=== PATIENT | male | born 1995 ===

== ENCOUNTER 2020-05-11 15:35 | Outpatient (REF) | payer MEDICAID, SELFPAY ==
--- NOTE | 2020-05-11 15:36 | MR_ITS ---
EXAMINATION: MR SHOULDER WITHOUT CONTRAST, RIGHT CLINICAL INFORMATION: Right shoulder pain. COMPARISON: Right shoulder radiographs dated 02/28/2020 TECHNIQUE: MRI of the shoulder without contrast was performed on a high-field scanner. FINDINGS: ROTATOR CUFF: Intact. No muscle atrophy or fatty infiltration. BICEPS: Normal. CORACOACROMIAL ARCH: The undersurface of the acromion is flat with no subacromial spur. The acromioclavicular joint is normal. LABRUM/CAPSULE: There is a 0.5 cm paralabral cyst adjacent to the posteroinferior labrum, likely indicating an adjacent occult labral tear. No displaced labral tear. GLENOHUMERAL JOINT/MARROW: Intact articular cartilage. No evidence of acute osseous injury. MR/MR shoulder RT wo con IMPRESSION: 1. Paralabral cyst adjacent to the posteroinferior labrum, likely indicating an adjacent occult labral tear. 2. Intact rotator cuff.
== END 2020-05-11 15:36 | disposition home or self-care (01) ==
LOC: HO.MRI 15:35
PROVIDERS: PCP Family Medicine; Visit Provider Family Medicine
DX: M25.511 Pain in right shoulder (principal)
CPT/HCPCS: 73221

== ENCOUNTER 2020-09-15 13:43 | Emergency (ER) | payer MEDICAID, SELFPAY ==
[2020-09-15 14:07] VITALS: BP 118/69; BP 150/80; PULSE 110; PULSE 115; RESP 20; TEMP 36.9; O2SAT 100; BMI 18.8
--- NOTE | 2020-09-15 15:28 | ED_ITS ---
HPI - Alcohol General Chief Complaint: ETOH/Substance Use Stated Complaint: OVERDOSE / COAX4 Time Seen by Provider: 09/15/20 14:26 Source: patient and EMS Mode of arrival: EMS History of Present Illness HPI narrative: 25-year-old male with a past medical history of spondylosis of the cervical spine presenting to the ED BIBA after found unresponsive in bathroom by family, given 4 mg of intranasal Narcan with positive affect. Patient appears under the influence, sleeping comfortably in the ED. Admits to taking Xanax, uncooperative with history/exam. Also reports marijuana use. Denies EtOH/other drugs/SI/HI Related Data Allergies Allergy/AdvReac Type Severity Reaction Status Date / Time No Known Allergies Allergy Unverified 04/05/20 17:35 Review of Systems Review of Systems: History limited due to patient being under the influence/uncooperative with exam/history Yes all other systems are reviewed and are negative [facility] Past Medical History Attestation statement: The following information was validated with the patient. Social History Social History Advance Directives: No Advance Directives Information Provided: No Physical Exam Vital Signs: Vital Signs: Last Vital Signs Temp 98.4 F 09/15/20 14:07 Pulse 115 H 09/15/20 14:07 Resp 20 09/15/20 14:07 BP 118/69 09/15/20 14:07 Pulse Ox 100 09/15/20 14:07 Body Mass Index 18.8 Const: Other: under the influence General: alert (to voice and tactile stimuli), diaphoretic and lethargic Orientation/consciousness: patient oriented x3 and lethargic HENMT: Head: Yes normal to inspection and Yes atraumatic Ears: hearing grossly normal bilaterally General nose exam: Normal external nose present Face and sinus: Yes normal facial exam Eyes: General: appearance normal, both eyes and all related structures Pupils: Equal, round and reactive pupils present EOM: EOMs intact bilaterally Neck: Neck: Yes normal visual inspection and Yes no meningeal signs Resp: Effort & Inspection: normal respiratory effort Cardio: Rate: regular rate and tachycardic GI: Inspection: Yes normal to inspection Palpation (GI): Soft to palpation Skin: Rashes: no rashes Neuro: General: patient oriented x3, tone normal and no meningeal signs Cranial nerves: Yes Equal, round and reactive pupils present Gait exam (Neuro): Normal gait present Extrem: General: Yes normal to inspection Psych: Thought content: suicidality and no homicidality Course Course Course Narrative: -1557--on re-evaluation patient is sleeping comfortably, easily abusable. Admits to taking two 2mg's of Xanax. Given inge dax --1700-- ED care transferred to MINDY Muller pending clinical sobriety and d/c MDM - Alcohol MDM Narrative Medical decision making narrative: 25-year-old male with a past medical history of spondylosis of the cervical spine presenting to the ED BIBA after found unresponsive in bathroom by family, given 4 mg of intranasal Narcan with positive affect. On exam tachyacrdic, under the influence, sleeping but easily arousible. Atraumatic, [place]. Will observe and reassess for clinical sobriety Discharge Plan Discharge Clinical Impression: Overdose Qualifiers: Encounter type: initial encounter Injury intent: accidental or unintentional Qualified Code(s): T50.901A - Poisoning by unspecified drugs, medicaments and biological substances, accidental (unintentional), initial encounter Instructions: Adult Overdose (ED) Additional Instructions: DO NOT TAKE DRUGS OR DRINK ALCOHOL IT CAN KILL YOU Referrals: [facility] [Primary Care Provider] - 2 days
--- NOTE | 2020-09-15 17:46 | MHC.RECOVSUP ---
? Reason for consult: Overdose o Current location: ED22H o Identified substance use concern:Heroin - Overdose - Support ? Intervention: o Community resources provided o Harm reduction discussion ? Plan: o Patient to follow up with [facility] after discharge ? Additional information: Patient stated that He has been on MAT for 3Years and that he was going through some stress and had a relapse. He stated that he don't need a detox and that he got a recovery couch from [facility].
[2020-09-15 19:08] VITALS: BP 112/68; PULSE 99; RESP 14; TEMP 37.4; O2SAT 96
== END 2020-09-15 19:24 | disposition home or self-care (01) ==
PROVIDERS: Emergency Provider Emergency Medicine
DX: R40.4 Transient alteration of awareness (principal); T42.4X4A Poisoning by benzodiazepines, undetermined, initial encounter; Y92.012 Bathroom of single-family (private) house as the place of occurrence of the external cause; R00.0 Tachycardia, unspecified; F12.90 Cannabis use, unspecified, uncomplicated
CPT/HCPCS: 99283

== ENCOUNTER 2022-12-20 13:16 | Emergency (ER) | payer MEDICAID, SELFPAY ==
[2022-12-20 13:54] VITALS: BP 131/83; PULSE 93; RESP 18; TEMP 36.8; O2SAT 98; BMI 25.1
--- NOTE | 2022-12-20 13:54 | ED_ITS ---
HPI - General Adult General Chief complaint: General Medical Stated complaint: swollen throat x1 week, cant eat or drink Time Seen by Provider: 12/20/22 14:55 Source: patient Mode of arrival: ambulatory Limitations: no limitations History of Present Illness HPI narrative: 27 year old male with no significant past medical history presents today with sore throat, nonproductive cough, neck pain, and pain with swallowing x1 week. States he has been tolerating fluids and staying hydrated. Reports nausea and fever one week ago which has since resolved. Denies nausea, vomiting, diarrhea, constipation, rashes, headache, nasal congestion, chest pain, or shortness of breath. No known sick contacts. MD complaint: sore throat Onset (ago): week(s) (1) Location: mouth Radiation: non-radiation Severity: moderate Related Data Previous Rx's Medication Instructions Recorded amoxicillin 875 mg-potassium 1 tab PO BID #20 tabs 12/20/22 clavulanate 125 mg tablet ibuprofen 600 mg tablet 600 mg PO Q8H PRN fever or pain 12/20/22 #20 tabs Allergies Allergy/AdvReac Type Severity Reaction Status Date / Time No Known Allergies Allergy Verified 12/20/22 13:54 Review of Systems Review of Systems: Yes all other systems are reviewed and are negative [facility] Past Medical History Source: old records reviewed Social History Social History Advance Directives: No Physical Exam ED Vital Signs: Vital Signs - 24 hr 12/20/22 13:54 Temperature 98.2 F Pulse Rate 93 Respiratory Rate 18 Blood Pressure 131/83 Pulse Oximetry 98 Oxygen Delivery Method Room Air BMI result Body Mass Index 25.1 VSS. Afebrile. Appearance: Alert. Oriented X3. No acute distress. HEENT: erythema to posterior pharynx. tonsils beefy red, and edematous. No tonsilar exudates. uvula midline. tolerating secretions. CVS: Normal heart rate and rhythm. Pulses normal. Respiratory: No respiratory distress. Lungs CTA b/l Skin: Skin warm and dry. Normal skin color. Normal skin turgor. No rashes. Neuro: Oriented X 3. No motor deficit. No sensory deficit. Course Course Course Narrative: RME performed by Teresa Carcamo PA-C. Patient is a 27 year old assigned male at presenting to the emergency department with a sore throat. Swabs ordered. Patient placed back in the waiting room pending room availability and results. Medical Decision Making Medical Decision Making [facility] Narrative: 27 year old male with no significant past medical history presents today with sore throat, nonproductive cough, neck pain, and pain with swallowing x1 week. VSS. Afebrile. Physical exam significant for erythema to posterior pharynx. tonsils beefy red, and edematous. No tonsilar exudates. uvula midline. tolerating secretion. no respiratory distress. lungs CTA b/l. Serology positive for strep. Negative for COVID and influenza. Clinical presentation consistent with strep throat. Will send patient home with rx for amoxicillin. Advised the patient to complete entire course of abx and take ibuprofen as needed. Advised patient to rines throat with salt water 3x/day. Will provide patient with a note for work tomorrow. Can return after 24 hours of abx. Patient expressed understanding of workup and plan. Patient stable for discharge. Differential Diagnosis Differential Diagnoses: The differential diagnosis associated with the presentation includes strep throat, viral pharyngitis, COVID, influenza Lab Data [facility] Lab Attestation statement: I reviewed the patient's lab results. Labs: Lab Results 12/20/22 12/20/22 12/20/22 Range/Units 14:05 14:05 14:05 COVID-19 (NAE[facility]) Negative (Negative) COVID-19 Clin Com See Note Influenza Type A (EDU) Negative (Negative) Influenza Type B (EDU) Negative (Negative) Influenza A & B Note See Note S. pyogenes GrpA EDU Positive A (Negative) External Record Review External record reviewed: Prior outpatient labs Prescription Management I considered prescription management with: Pain Medication and Antibiotic Discharge Plan Discharge Clinical Impression: Strep throat Patient Disposition: Home, Self-Care Instructions: Strep Throat (DC) Additional Instructions: You tested positive for strep throat. Take the prescribed antibiotic as directed. Started right away. Do not miss any doses in complete the entire course. Take the prescribed anti-inflammatory pain medication every 6-8 hours as needed. Take it with food. Recommend warm salt water gargles 3 times per day. Recommend [id number] Chloraseptic spray and Cepacol lozenges as needed for sore throat. Make sure you're drinking plenty of fluids. Follow-up with your doctor as needed. If you develop new or worsening symptoms call 911 or come back to the ER for further evaluation. Prescriptions: New amoxicillin-pot clavulanate 875-125 mg tablet 1 tab PO BID Qty: 20 0RF ibuprofen 600 mg tablet 600 mg PO Q8H PRN (Reason: fever or pain) Qty: 20 0RF Stand Alone Forms: Work/School Release Interventions: ED Discharge Assessment Last Done: 12/20/22 15:14 Discharge Date/Time: 12/20/22 15:30
[2022-12-20 14:47] LABS: IDNOW Serial# 6674DD1D; Strep A Nucleic Acid Positive (Negative)
[2022-12-20 14:51] LABS: COVID-19 Test Negative (Negative); IDNOW Serial# 9DB6401D
[2022-12-20 14:55] LABS: IDNOW Serial# 55D5AD1C; Influenza A Negative (Negative); Influenza B2 Negative (Negative)
== END 2022-12-20 15:30 | disposition home or self-care (01) ==
PROVIDERS: Physician Assistant Medical; Emergency Provider Emergency Medicine
DX: J02.0 Streptococcal pharyngitis (principal); Z20.822 Contact with and (suspected) exposure to COVID-19; Z20.828 Contact with and (suspected) exposure to other viral communicable diseases
CPT/HCPCS: 87502; 87635; 87651; 99282; 99283

== ENCOUNTER 2023-08-11 10:52 | Outpatient (REF) | payer MEDICAID, SELFPAY ==
[2023-08-11 14:48] LABS: Syphilis Screen Nonreactive (Nonreactive)
[2023-08-11 14:57] LABS: Alanine Aminotransferase 52 U/L (0-40); Albumin Level 4.8 g/dL (3.5-5.0); Alkaline Phosphatase 76 U/L (39-117); Aspartate Amino Transferase 17 U/L (5-37); Bilirubin Direct 0.2 mg/dL (0.0-0.5); Bilirubin Total 0.7 mg/dL (0.0-1.0); Total Protein 7.9 g/dL (6.5-8.0)
[2023-08-12 09:14] LABS: HIV AB/AG Nonreactive (Nonreactive); HIV Num 1 0.06 S/CO (0.00-0.99); ~HepC Num1 0.08 S/CO (0.00-0.79); ~Hepatitis C Antibody Nonreactive (Nonreactive)
[2023-08-14 08:48] LABS: TS Negative Control Passed; TS Panel A 0; TS Panel B 0; TS Positive Control Passed; TSpotTB Negative (Negative)
== END 2023-08-11 10:53 | disposition home or self-care (01) ==
LOC: HO.HHCL 10:52
PROVIDERS: Visit Provider Emergency Medicine
DX: F11.20 Opioid dependence, uncomplicated (principal)
CPT/HCPCS: 36415; 80076; 86481; 86780; 86803; 87389

== ENCOUNTER 2024-08-17 14:10 | Emergency (ER) | payer MEDICAID, SELFPAY ==
--- NOTE | ~2024-08-17 | CT_ITS ---
CLINICAL HISTORY: n v d abd pain CT abdomen and pelvis with contrast Comparison: None Findings: Lung bases clear. No free fluid or free air within the abdomen or pelvis. Normal stomach, small bowel, appendix, and colon. Moderate colonic fecal retention. Normal gallbladder, bile ducts, liver, pancreas, spleen, and adrenal glands. Unremarkable kidneys, ureters, and urinary bladder. Prostate within normal limits. No aortic aneurysm. Bones intact. IMPRESSION: No acute findings. Moderate colonic fecal retention. Correlate for constipation. This document has been electronically signed by: Jd Haynes MD on 08/17/2024 22:19:50
[2024-08-17 15:03] VITALS: BP 138/99; PULSE 75; RESP 16; TEMP 36.9; O2SAT 99; BMI 24.3
--- NOTE | 2024-08-17 15:03 | ED_ITS ---
HPI - General Adult General Chief complaint: Abdominal Pain Stated complaint: Vomiting Time Seen by Provider: 08/17/24 20:15 Related Data Previous Rx's ?Medication ?Instructions ?Recorded amoxicillin 875 mg-potassium 1 tab PO BID #20 tabs 12/20/22 clavulanate 125 mg tablet ibuprofen 600 mg tablet 600 mg PO Q8H PRN fever or pain 12/20/22 #20 tabs ibuprofen 400 mg tablet 400 mg PO Q6H PRN pain #20 tabs 08/17/24 ondansetron 4 mg disintegrating 4 mg PO TID PRN nausea and 08/17/24 tablet vomiting 5 days #10 tabs Allergies Allergy/AdvReac Type Severity Reaction Status Date / Time No Known Allergies Allergy Verified 08/17/24 15:06 [facility] Social History Social History Advance Directives: No Advance Directives Information Provided: Yes Physical Exam ED Vital Signs: Vital Signs - 24 hr 08/17/24 15:03 08/17/24 20:25 08/17/24 21:58 Temperature 98.4 F 98.2 F 98.7 F Pulse Rate 75 72 74 Respiratory Rate 16 16 16 Blood Pressure 138/99 H 122/63 116/75 Pulse Oximetry 99 98 99 Oxygen Delivery Method Room Air Room Air Room Air BMI result Body Mass Index 24.3 Course Course Course Narrative: This is a Rapid Medical Examination (RME) performed by Jonathan Kaur PA-C in triage. Full HPI, ROS, assessment and treatment plan per primary provider in the Main ED. 29 yo male here for eval of nausea, vomiting, epigastric abdominal pain, headache, blurred vision, dizziness, weakness, and chest tightness x3 days. cannot tolerate food/ drink. son and brother in law were ill w/ similar symptoms last week. admits to consuming etoh last night. not a daily drinker. smokes marijuana 2-3x a week. Plan: labs, viral swabs, UA, ekg Medications Administered Discontinued Medications Generic Name Dose Route Start Last Admin Trade Name Freq PRN Reason Stop Dose Admin Diphenhydramine HCl 25 mg 08/17/24 20:48 08/17/24 21:17 Diphenhydramine Hcl 50 Mg/Ml Vial IVPUSH 08/17/24 20:49 25 mg ONCE ONE Administration Sodium Chloride 1,000 mls @ 999 mls/hr 08/17/24 21:00 08/17/24 21:17 Ns IV 08/17/24 22:00 999 mls/hr .Q1H1M AYE Administration Sodium Chloride 1,000 mls @ 999 mls/hr 08/17/24 21:00 08/17/24 21:17 Ns IV 08/17/24 22:00 999 mls/hr .Q1H1M AYE Administration Iohexol 85 ml 08/17/24 21:41 08/17/24 21:42 Iohexol 350 Mg/Ml 100 Ml Infus..Btl IV 08/17/24 21:42 85 ml ONCE ONE Administration Metoclopramide HCl 10 mg 08/17/24 20:48 08/17/24 21:17 Metoclopramide Hcl 10 Mg/2 Ml Vial IVPUSH 08/17/24 20:49 10 mg ONCE ONE Administration Ondansetron HCl 4 mg 08/17/24 18:12 08/17/24 18:14 Ondansetron Odt 4 Mg Tab.Rapdis TRANSLINGU 08/17/24 18:13 4 mg ONCE ONE Administration Medical Decision Making Lab Data 08/17/24 15:27 08/17/24 15:27 Labs: Lab Results 08/17/24 Range/Units 15:27 WBC 10.3 (4.8-10.8) X10*3/uL RBC 5.27 (4.60-5.80) X10*6/uL Hgb 15.3 (14.0-18.0) g/dl Hct 44.2 (42.0-52.0) % MCV 83.9 (80.0-98.0) fL MCH 29.0 (27.0-33.0) pg MCHC 34.6 (31.0-36.0) g/dl RDW 12.8 (11.0-16.0) % Plt Count 297 (160-400) X10*3/uL MPV 9.9 (9.4-12.4) fL Immature Gran % (Auto) 0.3 (0.0-0.4) % Neut % (Auto) 78.8 H (45-73) % Lymph % (Auto) 16.7 L (20-40) % Beauregard % (Auto) 2.9 (2-11) % Eos % (Auto) 0.9 (0-4) % Baso % (Auto) 0.4 (0-2) % Lymph # (Auto) 1.7 (1.2-4.9) X10*3/uL Bea[place]gard # (Auto) 0.3 (0.1-1.2) X10*3/uL Eos # (Auto) 0.1 (0.0-0.4) X10*3/uL Baso # (Auto) 0.0 (0.0-0.2) X10*3/uL Abs Immat Gran (auto) 0.03 (0.00-0.03) X10*3/uL Absolute Neuts (auto) 8.2 (2.0-8.3) x10*3/uL Absolute Nucleated RBC 0.000 (0.0-0.012) X10*3/uL Nucleated RBC % (auto) 0.0 (0.0-0.2) /100WBC Sodium 139 (135-145) mmol/L Potassium 4.4 (3.3-5.1) mmol/L Chloride 103 (96-108) mmol/L Carbon Dioxide 25 (22-29) mmol/L Anion Gap 15 (12-20) BUN 18 H (9-16) mg/dL Creatinine 0.80 (0.5-1.4) mg/dL Estim Creat Clear Calc 139.4 Estimated GFR > 60 Random Glucose 103 (60-115) mg/dL Calcium 9.6 (8.4-10.2) mg/dL Magnesium 2.1 (1.6-2.6) mg/dL Total Bilirubin 0.4 (0.0-1.0) mg/dL AST 34 (5-37) U/L ALT 36 (0-40) U/L Alkaline Phosphatase 62 (39-117) U/L Troponin I High Sens < 2.7 (<3.5-35.0) ng/L Total Protein 8.1 H (6.5-8.0) g/dL Albumin 4.7 (3.5-5.0) g/dL Lipase 18 (8-78) U/L Ethyl Alcohol 19 mg/dL Influenza Type A (PCR) NEGATIVE (Negative) Influenza Type B (PCR) NEGATIVE (Negative) RSV RNA Qual (PCR) NEGATIVE (Negative) SARS-CoV-2 RNA (RT-PCR) NEGATIVE (Negative) Discharge Plan Discharge Clinical Impression: Headache, migraine, Gastroenteritis Patient Disposition: Home, Self-Care Instructions: Migraine Headache (ED), Gastroenteritis (ED) Prescriptions: New ibuprofen 400 mg tablet 400 mg PO Q6H PRN (Reason: pain) Qty: 20 0RF ondansetron 4 mg tablet,disintegrating 4 mg PO TID PRN (Reason: nausea and vomiting) 5 Days Qty: 10 0RF No Action amoxicillin-pot clavulanate 875-125 mg tablet 1 tab PO BID Qty: 20 0RF ibuprofen 600 mg tablet 600 mg PO Q8H PRN (Reason: fever or pain) Qty: 20 0RF Referrals: [facility] [Primary Care Provider] - 08/19/24 Print Language: Latvian
--- NOTE | 2024-08-17 15:05 | ECG_ITS ---
Test Reason : CHEST TIGHTNESS Blood Pressure : */* mmHG Vent. Rate : 74 BPM Atrial Rate : 74 BPM P-R Int : 126 ms QRS Dur : 92 ms QT Int : 382 ms P-R-T Axes : 76 51 27 degrees QTcB Int : 424 ms Normal sinus rhythm with sinus arrhythmia Normal ECG No previous ECGs available Referred By: Mariah Kaur Electronically Signed By: SREEKANTH OLIVER
[2024-08-17 15:32] LABS: MANUAL DIFF FLAG NO
[2024-08-17 15:47] LABS: Basophils Percent Auto 0.4 % (0-2); Eosinophils Absolute Auto 0.1 X10*3/uL (0.0-0.4); Eosinophils Percent Auto 0.9 % (0-4); Hematocrit 44.2 % (42.0-52.0); Hemoglobin 15.3 g/dl (14.0-18.0); Imm Gran Abs Auto 0.03 X10*3/uL (0.00-0.03); Imm Gran Pct Auto 0.3 % (0.0-0.4); Lymphocytes Absolute Auto 1.7 X10*3/uL (1.2-4.9); Lymphocytes Percent Auto 16.7 % (20-40); Mean Corpuscular HGB Conc 34.6 g/dl (31.0-36.0); Mean Corpuscular Volume 83.9 fL (80.0-98.0); Mean Platelet Volume 9.9 fL (9.4-12.4); Monocytes Absolute Auto 0.3 X10*3/uL (0.1-1.2); Monocytes Percent Auto 2.9 % (2-11); Neutrophils Absolute Auto 8.2 x10*3/uL (2.0-8.3); Neutrophils Percent Auto 78.8 % (45-73); Platelet Count 297 X10*3/uL (160-400); Red Blood Count 5.27 X10*6/uL (4.60-5.80); Red Cell Distribution Width 12.8 % (11.0-16.0); White Blood Count 10.3 X10*3/uL (4.8-10.8)
[2024-08-17 15:51] LABS: Troponin-I High Sensitivity < 2.7 ng/L (<3.5-35.0)
[2024-08-17 16:01] LABS: Alanine Aminotransferase 36 U/L (0-40); Albumin Level 4.7 g/dL (3.5-5.0); Anion Gap 15 (12-20); Aspartate Amino Transferase 34 U/L (5-37); Bilirubin Total 0.4 mg/dL (0.0-1.0); Blood Urea Nitrogen 18 mg/dL (9-16); Calcium 9.6 mg/dL (8.4-10.2); Carbon Dioxide 25 mmol/L (22-29); Chloride 103 mmol/L (96-108); Creatinine Clr Calc Pharmacy 139.4; Estimated Glomerular Filt Rate > 60; Glucose Random 103 mg/dL (60-115); Lipase 18 U/L (8-78); Magnesium 2.1 mg/dL (1.6-2.6); Potassium 4.4 mmol/L (3.3-5.1); Sodium 139 mmol/L (135-145); Total Protein 8.1 g/dL (6.5-8.0)
[2024-08-17 16:06] LABS: Alkaline Phosphatase 62 U/L (39-117)
[2024-08-17 16:23] LABS: Influenza A PCR NEGATIVE (Negative); Influenza B PCR NEGATIVE (Negative); Resp Syncy Virus RNA Qual PCR NEGATIVE (Negative); SARS COV2 PCR INHOUSE NEGATIVE (Negative)
--- OUTSIDE RECORDS SUMMARY | 2024-08-17 17:23 | XMS_ITS | Clinical Summary ---
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 naloxone (Narcan) 4 mg/0.1 mL nasal spray Administer 0.1 mL into affected nostril(s). 04/26/20 20 Active nicotine polacrilex (Commit) 2 MG lozenge DISSOLVE 1 TO 2 LOZENGES BY MOUTH EVERY 1 TO 2 HOURS INSTEAD OF A CIGARETTE. LET IT DISSOLVE SLOWLY IN YOUR MOUTH DIRECTED 11/20/19 22 Active nicotine (Nicoderm, Step 2) 14 MG/24HR patch APPLY 1 PATCH TOPICALLY TO THE SKIN EVERY MORNING DIRECTED 11/20/19 22 Active Acetaminophen Extra Strength 500 MG tablet TAKE 1 TABLET BY MOUTH EVERY 6 TO 8 HOURS NEEDED FOR DO NOT EXCEED 8 TABLETS IN 24 HOURS 07/22/19 22 Active ibuprofen 800 MG tablet Take 1 tablet by mouth in the morning and 1 tablet at noon and 1 tablet in the evening. 02/21/20 17 Active ARIPiprazole (Abilify) 5 MG tablet Take 5 mg by mouth in the morning. 03/30/20 23 Active gabapentin (Neurontin) 300 MG capsule Take 300 mg by mouth 3 times daily. 03/30/20 23 Active venlafaxine XR (Effexor XR) 150 MG 24 hr capsule Take 300 mg by mouth in the morning. 04/17/20 23 Active ibuprofen 600 MG tablet TAKE 1 TABLET BY MOUTH EVERY 8 HOURS NEEDED FOR FEVER OR PAIN 12/21/19 23 Active buprenorphine- naloxone (Suboxone) 12-3 MG per sublingual filmIndication s:Uncomplicate d opioid use Place 1 Film under the tongue Once per day for 14 days. 14 Film 08/17/19 25 025 Active buprenorphine- naloxone (Suboxone) 12-3 MG per sublingual filmIndication s:Uncomplicate d opioid use Place 1 Film under the tongue Once per day for 14 days. 14 Film 07/15/20 24 025 Discontinued(Re order (will not trigger notification to Pharmacy)) buprenorphine- naloxone (Suboxone) 12-3 MG per sublingual filmIndication s:Uncomplicate d opioid use Place 1 Film under the tongue Once per day for 14 days. 14 Film 08/02/19 25 025 Discontinued(Re order (will not trigger notification to Pharmacy)) Active Problems Problem Noted Date Diagnosed Date Preventative health care 05/26/2023 Overview (05/26/2023): -next physical exam due after -eye care facilitated by -dental home is YODIT (generalized anxiety disorder) 10/28/2022 Assessment & Plan (07/10/2023 10:50 AM EST): PROGRESS NOTE: ID: Richi is a 28 y.o. Decline to answer straight-identified cis-male (pronouns he/him/his) with previous documented hx of Depression, Anxiety, and Opioid Use Disorder MH services including psychopharmacology who presents for Addiction Problem, Anxiety, and Depression. He lives with his and son, currently not working receiving unemployment. He is connected with Psychiatrist from [facility], has no therapist at the moment. During IBH Consult Richi presenting to his obat appt informing relapse 3 weeks ago with heroine. He presented with depressed mood, loss of interests/pleasure , changes in sleep difficulty falling asleep, difficulty staying asleep , and restless, unsatisfying sleep, change in appetite or weight reduce appetite, psychomotor retardation, trouble concentrating, thoughts of worthlessness or guilt, fatigue/loss of energy, worthlessness , excessive worry/anxiety, difficulty controlling worry, restless/keyed up/On edge, easily fatigued, difficulty concentrating/Mind going blank , irritability, muscle tension, and sleep disturbance difficulty falling asleep, difficulty staying asleep , and restless, unsatisfying sleep, and using in larger amounts or for longer than intended, unsuccessful attempt/s to cut down/stop use, spending a lot of time getting/using/recovering from use , cravings and urges to use, recurrent use resulting in failure to fulfill major obligations at work/home/school , continued use, even when it causes interpersonal problems, giving up/reducing important social, occupational, or recreational activities because of use, continued use even when hazardous or dangerous , continued use despite physical or psychological problem (potentially related or made worse by use) , withdrawal sxs ; for a period of 18+ mo, Substance abuse relapse occurred 3 weeks ago in the context of family issues, financial concern, employment concern, relationship issues and loneliness. PLAN: New/Additional Services needed: Off-site services for Continue with current services (defined as services in the past 12 months): Keep seen Psychiatrist at [facility] Behavioral Health Integration Plan: Internal Follow up with [facility] and External OP therapy referral Patient Self Plan: Patient to utilize skills provided in intervention , Patient to reach out to [facility] team as needed, and Comply with medication Chronic pain syndrome 06/19/2022 Nicotine dependence 01/31/2022 Opioid dependence 01/31/2022 Assessment & Plan (07/10/2023 10:50 AM EST): PROGRESS NOTE: ID: Richi is a 28 y.o. Decline to answer straight-identified cis-male (pronouns he/him/his) with previous documented hx of Depression, Anxiety, and Opioid Use Disorder services including psychopharmacology who presents for Addiction Problem, Anxiety, and Depression. He lives with his and son, currently not working receiving unemployment. He is connected with Psychiatrist from [facility], has no therapist at the moment. During IB Consult Richi presenting to his obat appt informing relapse 3 weeks ago with heroine. He presented with depressed mood, loss of interests/pleasure , changes in sleep difficulty falling asleep, difficulty staying asleep , and restless, unsatisfying sleep, change in appetite or weight reduce appetite, psychomotor retardation, trouble concentrating, thoughts of worthlessness or guilt, fatigue/loss of energy, worthlessness , excessive worry/anxiety, difficulty controlling worry, restless/keyed up/On edge, easily fatigued, difficulty concentrating/Mind going blank , irritability, muscle tension, and sleep disturbance difficulty falling asleep, difficulty staying asleep , and restless, unsatisfying sleep, and using in larger amounts or for longer than intended, unsuccessful attempt/s to cut down/stop use, spending a lot of time getting/using/recovering from use , cravings and urges to use, recurrent use resulting in failure to fulfill major obligations at work/home/school , continued use, even when it causes interpersonal problems, giving up/reducing important social, occupational, or recreational activities because of use, continued use even when hazardous or dangerous , continued use despite physical or psychological problem (potentially related or made worse by use) , withdrawal sxs ; for a period of 18+ mo, Substance abuse relapse occurred 3 weeks ago in the context of family issues, financial concern, employment concern, relationship issues and loneliness. PLAN: New/Additional Services needed: Off-site services for Continue with current services (defined as services in the past 12 months): Keep seen Psychiatrist at [facility] Behavioral Health Integration Plan: Internal Follow up with [facility] and External OP therapy referral Patient Self Plan: Patient to utilize skills provided in intervention , Patient to reach out to [facility] team as needed, and Comply with medication Assessment & Plan (02/17/2023 11:56 AM EDT): Assessment: Richi was engaged with active reflective listening and open- ended questions. Assessed symptoms, risks, and social supports with direct questions. Discussed current symptoms intensity and frequency. Emotions were normalized and validated. He identified listening to music as coping mechanisms and his son as protective factors. Provided psychoeducation around behavioral activation and self-love. He is connected with [facility] for OP services. Provided education around integrated medicine and the options of follow up BE's as needed. Provided contact information should questions or concerns arise. Plan: Richi will continue to engage in effective coping mechanisms of that has worked for him in the past and will use behavioral activation, and practice self-love at least one time per day for 6 months. Patient with lack of motivation, depressed, hopelessness, sleep disturbance, little energy, poor appetite, feeling bad about himself, trouble with concentration, reported unable to finish task, problem with organization, unable to give detail attention to task, moving os speaking slow at times, feeling anxious, persistent worry, restlessness, irritability, denies cravings, curre and fearfulness. He He denies SI, HI, or self-harm. He lives with and his son, currently working. Today his PHQ9 score was 17 and his GAD7 score was 17. Patient will benefit from continuation of OP services with [facility] providers. At this time Richi Uribe meets criteria for Visit Diagnoses: Problem List Items Addressed This Visit Other Moderate episode of recurrent major depressive disorder (CMS/HCC) Opioid dependence (CMS/HCC) Patient ready to address current needs Richi is already engage in services. Strengths include willing to speak up and advocate for himself. PLAN: 1. Follow up with [facility]: Recommended for follow-up: during OBAT appts 2. Patient goal is to maintaing sobriety and improve mental health 3. Behavioral Recommendations a. Ind. Therapy b. Medication Management c. Use of coping skills d. [facility] contact info for extra support Backache 05/13/2013 Moderate episode of recurrent major depressive d isorder 05/13/2013 Assessment & Plan (02/17/2023 11:56 AM EDT): Assessment: Richi was engaged with active reflective listening and open- ended questions. Assessed symptoms, risks, and social supports with direct questions. Discussed current symptoms intensity and frequency. Emotions were normalized and validated. He identified listening to music as coping mechanisms and his son as protective factors. Provided psychoeducation around behavioral activation and self-love. He is connected with [facility] for OP services. Provided education around integrated medicine and the options of follow up BE's as needed. Provided contact information should questions or concerns arise. Plan: Richi will continue to engage in effective coping mechanisms of that has worked for him in the past and will use behavioral activation, and practice self-love at least one time per day for 6 months. Patient with lack of motivation, depressed, hopelessness, sleep disturbance, little energy, poor appetite, feeling bad about himself, trouble with concentration, reported unable to finish task, problem with organization, unable to give detail attention to task, moving os speaking slow at times, feeling anxious, persistent worry, restlessness, irritability, denies cravings, curre and fearfulness. He He denies SI, HI, or self-harm. He lives with and his son, currently working. Today his PHQ9 score was 17 and his GAD7 score was 17. Patient will benefit from continuation of OP services with [facility] providers. At this time Richi Uribe meets criteria for Visit Diagnoses: Problem List Items Addressed This Visit Other Moderate episode of recurrent major depressive disorder (CMS/HCC) Opioid dependence (CMS/HCC) Patient ready to address current needs Richi is already engage in services. Strengths include willing to speak up and advocate for himself. PLAN: 1. Follow up with [facility]: Recommended for follow-up: during OBAT appts 2. Patient goal is to maintaing sobriety and improve mental health 3. Behavioral Recommendations a. Ind. Therapy b. Medication Management c. Use of coping skills d. [facility] contact info for extra support Encounters Date Type Department Care Team Description 08/17/2024 Orders Only GENERIC EXTERNAL DATA DEPARTMENT Provider, Generic External Data 08/17/2024 Refill [facility] [address] [place] [phone] Yandy Patterson RN Uncomplicated opioid use 08/09/2024 10:00 AM EST Clinical Support [facility] [address] [place] [phone] Yandy Patterson RN Uncomplicated opioid dependence (CMS/HCC) (Primary Dx) 08/09/2024 Travel 08/01/2024 Refill [facility] [address] [place] [address] Yandy Patterson, MICHELE Uncomplicated opioid use 07/25/2024 Telephone [facility] [address] [place] [phone] Yandy Patterson RN 07/14/2024 Refill [facility] [address] [place] [address] Yandy Patterson, MICHELE Uncomplicated opioid use 07/12/2024 11:00 AM EST Telemedicine [facility] [address] [place] [id number] Yandy Patterson, MICHELE Uncomplicated opioid dependence (CMS/HCC) 07/12/2024 Travel 07/05/2024 Refill [facility] [address] [place] [phone] Yandy Patterson RN Uncomplicated opioid use 06/28/2024 11:00 AM EST Clinical Support [address] [phone] Yandy Patterson RN Uncomplicated opioid dependence (CMS/HCC) 06/28/2024 Travel 06/22/2024 Refill [facility] [address] [place] [phone] Yandy Patterson RN Uncomplicated opioid use 06/14/2024 10:30 AM EST Clinical Support [address] [address] Yandy Patterson RN Uncomplicated opioid dependence ([facility]/HCC) (Primary Dx) 06/14/2024 Travel 06/06/2024 Refill [facility] [address] [place] [phone] Yandy Patterson RN Uncomplicated opioid use 05/31/2024 10:00 AM EST Telemedicine [address] [address] Miguel Denson MD Uncomplicated opioid dependence ([facility]/HCC) (Primary Dx); Tobacco use disorder; History of benzodiazepine use 05/31/2024 Travel 05/30/2024 Telephone [facility] [address] [place] [phone] Yandy Patterson RN 05/17/2024 10:15 AM EDT Office Visit [address] [phone] Miguel Denson MD Uncomplicated opioid dependence ([facility]) (Primary Dx); Tobacco use disorder; History of benzodiazepine use 05/17/2024 Travel from Last 3 Months Immunizations Name Administration Dates Next Due DTaP 06/15/1998, 7,1994,08/27,1994 HPV, Quadrivalent 11/25/2012,07/04/2010 Hep A, ped/adol, 2 dose 07/04/2010 Hep B, Adolescent or Pediatric 1994,1994,1994 Hib (HbOC) 10/06/1996, 5,1994,06/03 IPV 05/15/1998, 7,1994,09/06,1994 Influenza, IIV3, injectable 07/04/2010,1 09/03/2008,05/16/2008,05/13 MMR 06/15/1998,06/23/1995 Meningococcal MCV4P [id number]-135 05/13/2006 TD (adult), 2 Lf tetanus tox oid, preservative free, adsorbed 05/07/2018,12/19/2004 Tdap 07/03/2009 Varicella 05/16/2008,03/10/2006 Social History Tobacco Use Types Packs/Day Years Used Date Smoking Tobacco: Every Day Cigarettes Smokeless Tobacco: Never Tobacco Cessation:Ready to Q uit: Not Asked; Counseling Given: Not Answered Alcohol Answer Date Recorded How often do you have a drink containing alcohol ? 0 07/10/2023 How many drinks containing a lcohol do you have on a typical day when you are drinking? 0 07/10/2023 How often do you have six or more drinks on one occasion? 0 07/10/2023 Depression Answer Date Recorded Patient Health Questionnaire-9 Score 24 07/10/2023 Patient Health Questionnaire-9 Score 24 07/10/2023 Last PHQ-9: Questionnaire Data Not on file 1 09/10/2022 Depression Answer Date Recorded Patient Health Questionnaire-2 Score 6 07/10/2023 Sex and Gender Information Value Date Recorded Sex Assigned at Male 05/19/2022 10:19 AM EDT Legal Sex Male 10:19 AM EDT Gender Identity Male 05/19/2022 10:19 AM EDT Sexual Orientation Straight 11/25/2022 8: 48 AM EDT Last Filed Vital Signs Vital Sign Reading Time Taken Comments Blood Pressure 104/69 01/26/2024 10:33 AM EDT Pulse 94 01/26/2024 10:33 AM EDT Temperature 36.6 ??C (97.9 ??F) 01/26/2024 10:33 AM E DT Respiratory Rate - - Oxygen Saturation - - Inhaled Oxygen Concentration - - Weight 69.9 kg (154 lb 3.2 oz) 07/22/2021 12:01 AM EST Height 177 cm (5' 9.69 ) 07/22/2021 12:01 AM EST Body Mass Index 22.32 07/22/2021 12:01 AM EST Plan of Treatment Upcoming Encounters Date Type Department Care Team (Late st Contact Info) Description 08/23/2024 11:00 AM EST Clinical Support [address] [phone] Yandy Patterson, MICHELE Health Maintenance Due Date Last Done Comments Lipid Panel 1994 SDOH Screening 1994 Alcohol/Substance Use Screening 2006 Family Planning (PISQ) 2009 Hepatitis A Vaccines (2 of 2 - 2-dose series) 01/02/2011 07/04/2010 HPV Vaccines (3 - Male 3-dose series) 02/17/2013 11/25/2012, 07/04/2010 Pneumococcal Vaccine: Pediatrics (0 to 5 Years) and At-Risk Patients (6 to 49) Years) (1 of 2 - PCV) 2013 Depression Monitoring (PHQ-9) 01/09/2024 07/10/2023, 07/10/2023 COVID-19 Vaccine ( - season) 2024 02/15/2022, 01/17/2022 Influenza Vaccine (#1) 2024 0, 07/03/2009, 05/16/2008, Additional history exists Depression Screening 07/10/2024 07/10/2023, 07/10/20 23 Tobacco Screening 04/11/2025 04/11/2024 DTaP/Tdap/Td Vaccines (8 - Td or Tdap) 05/07/2028 05/07/2018, 07/03/2009, 12/19/2004, Additional history exists Zoster Vaccines (1 of 2) 2044 RSV Patients and Patients Aged 60 years or older (1 - 1-dose 75+ series) 2069 Hepatitis B Vaccines Completed 1994, 1994, 1994 HIB Vaccines Completed 10/06/1996, 10/19, 1994, Additional history exists IPV Vaccines Completed 05/15/1998, 03/21, 1994, Additional history exists Meningococcal Vaccine Aged Out 05/13/2006 No moshe pako eligible based on patient's age to complete this topic HIV Screening Completed 08/11/2023, 09/2021, 08/16/2021 Hepatitis C Screening Completed 08/11/2023 , 11/19/2021, 08/16/2021 RSV under 20 months Aged Out No longe r eligible based on patient's age to complete this topic Rotavirus Vaccines Aged Out No longer eligible based on patient's age to complete this topic Procedures Procedure Name Priority Date/Time Associated Diagnosis Comments LIPASE Routine 08/17/2024 3:27 PM EST MAGNESIUM Routine 08/17/2024 3:27 PM EST COMPREHENSIVE METABOLIC PANEL Routine 08/17/2024 3:27 PM EST HIGH SENSITIVITY TROPONIN I Routine 08/17/2024 3:27 PM EST CBC WITH AUTO DIFFERENTIAL Routine 08/17/2024 3:27 PM EST SARS COV2/INFLUENZA A/B AND RSV RNA QL NAAT Routine 08/17/2024 3:27 PM EST POCT ANDREINA-14 URINE DRUG SCREEN Routine 08/09/2024 1:39 PM EST Uncomplicated opioid dependence (CMS/HCC) POCT ANDREINA-14 URINE DRUG SCREEN Routine 06/14/2024 9:48 AM EST Uncomplicated opioid dependence (CMS/HCC) POCT ANDREINA-14 URINE DRUG SCREEN Routine 05/17/2024 10:38 AM EDT Uncomplicated opioid dependence (CMS/HCC) HEPATITIS C AB W/REFL TO HCV RNA, QN, PCR Routine 08/11/2023 10:53 AM EST Uncomplicated opioid use HIV 1/2 ANTIGEN/ANTIBODY, FOURTH GENERATION W/RFL Routine 08/11/2023 10:53 AM EST Uncomplicated opioid use from Last 3 Months or Most Recently Relevant to Health Maintenance Results * High Sensitivity Troponin I (08/17/2024 3:27 PM EST) TROPONIN I HIGH SENSITIVITY <2.7 <3.5 - 35.0 ng/L [facility] Comment:The Arias high sens itivity Troponin-I results should beused in conjunction with other diagnostic information suchas ECG, clinical observations and information, and patientsymptoms to aid in the diagnosis of [place]. 08/17/2024 3:27 PM EST 08/17/2024 3:29 PM EST us Generic External Data Provider LAB BLOOD ORDERAB LES Final Result [facility] [address] [place] [phone] * SARS-CoV-2 RNA, Influenza A/B, and RSV RNA, Ql NAAT (08/17/2024 3:27 PM EST) Pathologist [facility] Influenza A PCR NEGATIVE Negative [facility] Influenza B PCR NEGATIVE Negative [facility] Resp Syncy Virus RNA Qual PCR NEGATIVE Negative [facility] SARS COV2 PCR NEGATIVE Negative [facility] Comment:All test results mus t be correlated with clinical findings.Negative results do not preclude SARS-CoV2, influenza Avirus, influenza B virus and/or RSV infectionand should not be used as the sole basis for treatment orother patient management decisions. Negative results must becombined with clinical observations, patient history, andepidemiological information.This test has not been evaluated for monitoring treatment ofinfection.This test has been authorized by the FDA under an EmergencyUse Authorization (EUA) for use by authorized laboratories.Testing performed on the [employer] GeneXpert utilizingreal-time RT-PCR.All SARS CoV2 and positive influenza A/B results arereported to [facility]. 08/17/2024 3:27 PM EST 08/17/2024 3:29 PM EST us Generic External Data Provider LAB MICROBIOLOGY - GENERAL ORDERABLES Final Result [facility] [address] [place] [address] [phone] * (ABNORMAL) CBC auto differential (08/17/2024 3:27 PM EST) White Blood Count 10.3 4.8 - 10.8 X10*3/uL [facility] Red Blood Count 5.27 4.60 - 5.80 X10*6/uL [facility] Hemoglobin 15.3 14.0 - 18.0 g/dl [facility] Hematocrit 44.2 42.0 - 52.0 % [facility] Mean Corpuscular Volume 83.9 80.0 - 98.0 fL [facility] Mean Corpuscular Hemoglobin 29.0 27.0 - 33.0 pg [facility] Mean Corpuscular HGB Conc 34.6 31.0 - 36.0 g/dl [facility] Red Cell Distribution Width 12.8 11.0 - 16.0 % [facility] Platelet Count 297 160 - 400 X10*3/uL [facility] Mean Platelet Volume 9.9 9.4 - 12.4 fL [facility] Neutrophils Percent Auto 78.8(H) 45 - 73 % [facility] Imm Gran Pct Auto 0.3 0.0 - 0.4 % [facility] Lymphocytes Percent Auto 16.7(L) 20 - 40 % [facility] Monocytes Percent Auto 2.9 2 - 11 % [facility] Eosinophils Percent Auto 0.9 0 - 4 % [facility] Basophils Percent Auto 0.4 0 - 2 % [facility] NRBC Pct Auto 0.0 0.0 - 0.2 /100WBC [facility] Neutrophils Absolute Auto 8.2 2.0 - 8.3 x10*3/uL [facility] Imm Gran Abs Auto 0.03 0.00 - 0.03 X10*3/uL [facility] Lymphocytes Absolute Auto 1.7 1.2 - 4.9 X10*3/uL [facility] Monocytes Absolute Auto 0.3 0.1 - 1.2 X10*3/uL [facility] Eosinophils Absolute Auto 0.1 0.0 - 0.4 X10*3/uL [facility] Basophils Absolute Auto 0.0 0.0 - 0.2 X10*3/uL [facility] NRBC Abs Auto 0.000 0.0 - 0.012 X10*3/uL [facility] 08/17/2024 3:27 PM EST 08/17/2024 3:29 PM EST us Generic External Data Provider LAB BLOOD ORDERAB LES Final Result Performing Organization Address [facility]/ZIP Co de Phone Number [facility] [address] [place] [phone] * Magnesium (08/17/2024 3:27 PM EST) Magnesium 2.1 1.6 - 2.6 mg/dL [facility] 08/17/2024 3:27 PM EST 08/17/2024 3:29 PM EST us Generic External Data Provider LAB BLOOD ORDERAB LES Final Result Performing Organization Address [facility]/ZIP Co de Phone Number [facility] [address] [place] [phone] * Lipase (08/17/2024 3:27 PM EST) Lipase 18 8 - 78 U/L [facility] 08/17/2024 3:27 PM EST 08/17/2024 3:29 PM EST us Generic External Data Provider LAB BLOOD ORDERAB LES Final Result Performing Organization Address [facility]/ZIP Co de Phone Number [facility] [address] [place] [phone] * (ABNORMAL) Comprehensive Metabolic Panel (08/17/2024 3:27 PM EST) Sodium 139 135 - 145 mmol/L [facility] Potassium 4.4 3.3 - 5.1 mmol/L [facility] Comment:Slight Hemolysis.Int erpret result with caution. Chloride 103 96 - 108 mmol/L [facility] Carbon Dioxide 25 22 - 29 mmol/L [facility] Anion Gap 15 12 - 20 [facility] [facility] Urea Nitrogen (BUN) 18(H) 9 - 16 mg/dL [facility] Creatinine, Serum 0.80 0.5 - 1.4 mg/dL [facility] Creatinine Clr Calc Pharmacy 139.4 [facility] Comment:eGFR (calculated fro m the MDRD study equation) and eCrCl(calculated from the Cockcroft-Gault equation) are based ondifferent parameters and may not yield comparable results.If eCrCl result is absurd, please check patient'sheight/weight. Estimated Glomerular Filt Rate >60 [facility] Comment:Chronic Kidney Disea se: Estimated GFR < 60 mL/min/1.79h4Uamnif Kidney Disease: Estimated GFR < 15 mL/min/1.73m2 Glucose 103 60 - 115 mg/dL [facility] Calcium 9.6 8.4 - 10.2 mg/dL [facility] Bilirubin, Total 0.4 0.0 - 1.0 mg/dL [facility] Aspartate Amino Transferase 34 5 - 37 U/L [facility] Comment:Slight Hemolysis.Int erpret result with caution. Alanine Aminotransferase 36 0 - 40 U/L [facility] Total Protein 8.1(H) 6.5 - 8.0 g/dL [facility] Albumin Level 4.7 3.5 - 5.0 g/dL [facility] Alkaline Phosphatase 62 39 - 117 U/L [facility] 08/17/2024 3:27 PM EST 08/17/2024 3:29 PM EST us Generic External Data Provider LAB BLOOD ORDERAB LES Final Result [facility] [address] [place] [phone] * POCT ANDREINA-14 Urine Drug Screen (08/09/2024 1:39 PM EST) Only the most recent of3 resultswithin the time period is included. THC Positive Cocaine Screen, Urine Negative Opiate Screen, Urine Negative Methamphetamine Screen Urine Negative Amphetamine Screen, Urine Negative Benzodiazepines Screen, Urine Positive Barbiturate Screen, Urine Negative Methadone Screen, Urine Negative Buprenophine Screen, Urine Positive TCA, Urine Negative MDMA Urine Negative ng/mL Oxycodone Screen, Urine Negative Phencyclidine (PCP), Urine Negative Propoxyphene, Urine Negative Fentanyl, Urine Negative Urine Urine specimen obtained by clean catch procedure / Unknown 08/09/2024 1:39 PM EST Miguel Denson MD POINT OF CARE TEST ENTER/EDIT ORDERABLES Final Result * Hepatitis C Antibody with Reflex to HCV, RNA, Quantitative, Real-Time PCR (08/11/2023 10:53 AM EST) Pathologist [facility] Hepatitis C Antibody Nonreactive Nonreactive [facility] Comment:Antibodies to HCV no t detected; does not exclude early acuteHCV infection. Blood Venous blood specimen / Unknown 08/11/2023 10:53 AM EST 08/11/2023 1:43 PM EST Miguel Denson MD LAB BLOOD ORDERABLES Final Res ult [facility] [address] [place] [phone] * HIV-1/2 Antigen and Antibodies, Fourth Generation, with Reflexes (08/11/2023 10:53 AM EST) HIV AB/AG Nonreactive Nonreactive [facility] Comment:HIV-1 p24 Ag and/or HIV-1/HIV-2 Ab not detected.A test result that is nonreactive does not exclude thepossibility of exposure to or infection with HIV-1 and/orHIV-2. Nonreactive results in this assay for individualswith prior exposure to HIV-1 and/or HIV-2 may be due toantigen and antibody levels that are below the limit ofdetection of this assay.The [employer] Display System HIV Ag/Ab Combo assay result andsupplemental assay results should be interpreted inconjunction with the patient's clinical presentation,history and other laboratory results. If the results areinconsistent with clinical evidence, additional testing issuggested to confirm the result. Blood Venous blood specimen / Unknown 08/11/2023 10:53 AM EST 08/11/2023 1:43 PM EST us Miguel Denson MD LAB BLOOD ORDERABLES Final Res ult [facility] [address] [place] [phone] from Last 3 Months or Most Recently Relevant to Health Maintenance Insurance [facility] C3 N FULL * Guarantor: Richi Uribe Account Type Relation to Patient Date of Phone Billing Address Personal/Family Self [address] [facility] Care Teams Filter Washer And Presser Relationship Specialty Start Date End Date [place], [place] Twila [address] [place] [phone] PCP - General Family Medicine 05/20/13
--- OUTSIDE RECORDS SUMMARY | 2024-08-17 17:23 | XMS_ITS | Encounter Summary ---
Author Organization [employer] Address [address] [place] [address] [address] [address] Care Team Providers Care Charger Tester Name Role Phone Twila Murray MD Primary Care Provider +1- [phone] Reason for Visit * Reason Onset Date Comments Med Refill 08/17/2024 Encounter Details Date Type Department Care Team (Late st Contact Info) Description 08/17/2024 Refill [facility] MEDICINE [address] [place] [address] Yandy Patterson RN Uncomplicated opioid use Social History Tobacco Use Types Packs/Day Years Used Date Smoking Tobacco: Every Day Cigarettes Smokeless Tobacco: Never Alcohol Answer Date Recorded How often do [...] Orientation Straight 11/25/2022 8: 48 AM EDT documented as of this encounter Plan of Treatment Upcoming Encounters Date Type Department Care Team (Late st Contact Info) Description 08/23/2024 11:00 AM EST Clinical Support [facility] MEDICINE [address] [place] [address] Yandy Patterson RN documented as of this encounter Visit Diagnoses Diagnosis Uncomplicated opioid use documented in this encounter Additional Health Concerns Assessment Noted Time PHQ-9 Depression Total Score: 24 023 9:57 AM EST documented as of this encounter Care Teams Charger Tester Relationship Specialty Start Date End Date Twila uMrray MD [address] [place] [address] PCP - General Family Medicine 05/20/13 documented as of this encounter
--- OUTSIDE RECORDS SUMMARY | 2024-08-17 17:23 | XMS_ITS | Encounter Summary ---
Author Organization [employer] [facility] Address [address] [place] [address] Care Team Providers Care Manager Of Purchasing Name Role Phone Twila Murray MD Primary Care Provider +1- [phone] Encounter Details Date Type Department Care Team (Late Contact Info) Description 08/17/2024 Orders Only GENERIC EXTERNAL DATA DEPARTMENT Provider, Generic External Data Social History Tobacco Use Types Packs/Day Years [...] Description 08/23/2024 11:00 AM EST Clinical Support [facility]INE [address] [place] [address] Enko, Yandy, RN documented as of this encounter Procedures Procedure Name Priority Date/Time Associated Diagnosis Comments HIGH SENSITIVITY TROPONIN I Routine 08/17/2024 3:27 PM EST SARS COV2/INFLUENZA A/B AND RSV RNA QL NAAT Routine 08/17/2024 3:27 PM EST CBC WITH AUTO DIFFERENTIAL Routine 08/17/2024 3:27 PM EST MAGNESIUM Routine 08/17/2024 3:27 PM EST LIPASE Routine 08/17/2024 3:27 PM EST COMPREHENSIVE METABOLIC PANEL Routine 08/17/2024 3:27 PM EST documented in this encounter Results * SARS-CoV-2 RNA, Influenza A/B, and RSV RNA, Ql NAAT (08/17/2024 3:27 PM EST) Influenza A PCR NEGATIVE Negative [facility] Influenza B PCR NEGATIVE Negative [facility] Resp Syncy Virus RNA Qual PCR NEGATIVE Negative [facility] SARS COV2 PCR NEGATIVE Negative [facility] Comment:All test results mus t [...] use by authorized laboratories.Testing performed on the [employer] GeneXpert utilizingreal-time RT-PCR.All SARS CoV2 and positive influenza A/B results arereported to [facility]. 08/17/2024 3:27 PM EST 08/17/2024 3:29 PM EST us Generic External Data Provider LAB MICROBIOLOGY - GENERAL ORDERABLES Final Result [facility] [address] [place] [phone] * Lipase (08/17/2024 3:27 PM EST) Pathologist [facility] Lipase 18 8 - 78 U/L [facility] 08/17/2024 3:27 PM EST 08/17/2024 3:29 PM EST Generic External Data Provider LAB BLOOD ORDERAB LES Final Result Performing Organization Address [facility] Co de Phone Number [facility] [address] [place] [phone] * Magnesium (08/17/2024 3:27 PM EST) Pathologist [facility] Magnesium 2.1 1.6 - 2.6 mg/dL [facility] 08/17/2024 3:27 PM EST 08/17/2024 3:29 PM EST Generic External Data Provider LAB BLOOD ORDERAB LES Final Result Performing Organization Address [facility] Phone Number [facility] [address] [place] [phone] * (ABNORMAL) Comprehensive Metabolic Panel (08/17/2024 3:27 PM EST) Pathologist [facility] Sodium 139 135 - 145 mmol/L [facility] Potassium 4.4 3.3 - 5.1 mmol/L [facility] Comment:Slight Hemolysis.Int erpret result with caution. Chloride 103 96 - 108 mmol/L [facility] Carbon Dioxide 25 22 - 29 mmol/L [facility] Anion Gap 15 12 - 20 [facility] Urea Nitrogen (BUN) 18(H) 9 - 16 mg/dL [facility] Creatinine, Serum 0.80 0.5 - 1.4 mg/dL [facility] Creatinine Clr Calc Pharmacy 139.4 [facility] Comment:eGFR (calculated fro m the MDRD study equation) and eCrCl(calculated from the Cockcroft-Gault equation) are based ondifferent parameters and may not yield comparable results.If eCrCl result is absurd, please check patient'sheight/weight. Estimated Glomerular Filt Rate >60 [facility] Comment:Chronic Kidney Disea se: Estimated GFR < 60 mL/min/1.94u2Znpacn Kidney Disease: Estimated GFR < 15 mL/min/1.73m2 Glucose 103 60 - 115 mg/dL [facility] Calcium 9.6 8.4 - 10.2 mg/dL [facility] Bilirubin, Total 0.4 0.0 - 1.0 mg/dL [facility] Aspartate Amino Transferase 34 5 - 37 U/L [facility] Comment:Slight Hemolysis.Int erpret result with caution. Alanine Aminotransferase 36 0 - 40 U/L [facility] Total Protein 8.1(H) 6.5 - 8.0 g/dL [facility] Albumin Level 4.7 3.5 - 5.0 g/dL [facility] Alkaline Phosphatase 62 39 - 117 U/L [facility] 08/17/2024 3:27 PM EST 08/17/2024 3:29 PM EST [employer] External Data Provider LAB BLOOD ORDERAB LES Final Result [facility] [address] [place] [phone] * High Sensitivity Troponin I (08/17/2024 3:27 PM EST) TROPONIN I HIGH SENSITIVITY <2.7 <3.5 - 35.0 ng/L [facility] Comment:The Arias high sens itivity Troponin-I results should beused in conjunction with other diagnostic information suchas ECG, clinical observations and information, and patientsymptoms to aid in the diagnosis of AK. 08/17/2024 3:27 PM EST 08/17/2024 3:29 PM EST us Generic External Data Provider LAB BLOOD ORDERAB LES Final Result [facility] [address] [place], [place] [phone] * (ABNORMAL) CBC auto differential (08/17/2024 3:27 PM EST) White Blood Count 10.3 4.8 - 10.8 X10*3/uL [facility] Red Blood Count 5.27 4.60 - 5.80 X10*6/uL [facility] Hemoglobin 15.3 14.0 - 18.0 g/dl [facility] Hematocrit 44.2 42.0 - 52.0 % [facility] Mean Corpuscular Volume 83.9 80.0 - 98.0 fL [facility] Mean Corpuscular Hemoglobin 29.0 27.0 - 33.0 pg [facility] Mean Corpuscular HGB Conc 34.6 31.0 - 36.0 g/dl [facility] Red Cell Distribution Width 12.8 11.0 - 16.0 % [facility] Platelet Count 297 160 - 400 X10*3/uL [facility] Mean Platelet Volume 9.9 9.4 - 12.4 fL [facility] Neutrophils Percent Auto 78.8(H) 45 - 73 % [facility] Imm Gran Pct Auto 0.3 0.0 - 0.4 % [facility] Lymphocytes Percent Auto 16.7(L) 20 - 40 % [facility] Monocytes Percent Auto 2.9 2 - 11 % [facility] Eosinophils Percent Auto 0.9 0 - 4 % [facility] Basophils Percent Auto 0.4 0 - 2 % [facility] NRBC Pct Auto 0.0 0.0 - 0.2 /100WBC [facility] Neutrophils Absolute Auto 8.2 2.0 - 8.3 x10*3/uL [facility] Imm Gran Abs Auto 0.03 0.00 - 0.03 X10*3/uL [facility] Lymphocytes Absolute Auto 1.7 1.2 - 4.9 X10*3/uL [facility] Monocytes Absolute Auto 0.3 0.1 - 1.2 X10*3/uL [facility] Eosinophils Absolute Auto 0.1 0.0 - 0.4 X10*3/uL [facility] Basophils Absolute Auto 0.0 0.0 - 0.2 X10*3/uL [facility] NRBC Abs Auto 0.000 0.0 - 0.012 X10*3/uL [facility] 08/17/2024 3:27 PM EST 08/17/2024 3:29 PM EST us Generic External Data Provider LAB BLOOD ORDERAB LES Final Result [facility] [address] [place] [phone] documented in this encounter Visit Diagnoses Not on filedocumented in this encounter Additional Health Concerns Assessment Noted Time PHQ-9 Depression Total Score: 24 023 9:57 AM EST documented as of this encounter Care Teams Manager Of Purchasing Relationship Specialty Start Date End Date Twila Murray MD [address] [place] [phone] PCP - General Family Medicine 05/20/13 documented as of this encounter
--- OUTSIDE RECORDS SUMMARY | 2024-08-17 17:24 | XMS_ITS | Encounter Summary ---
Author Organization [employer] Address [address] [place] [address] [address], [place] [address] Care Team Providers Care Data Migration Consultant Name Role Phone Twila Murray MD Primary Care Provider +1- [phone] Reason for Visit * Reason Onset Date Comments Med Refill 08/01/2024 Encounter Details Date Type Department Care Team (Late st Contact Info) Description 08/01/2024 Refill [facility] MEDICINE [address] [place] [phone] Yandy Patterson RN Uncomplicated opioid use Social [...] Description 08/23/2024 11:00 AM EST Clinical Support [facility]ICINE [address] [place] [address] Yandy Patterson RN documented as of this encounter Visit Diagnoses Diagnosis Uncomplicated opioid use documented in this encounter Additional Health Concerns Assessment Noted Time PHQ-9 Depression Total Score: 24 023 9:57 AM EST documented as of this encounter Care Teams Data Migration Consultant Relationship Specialty Start Date End Date Twila Murray MD [address] [place] [address] PCP - General Family Medicine 05/20/13 documented as of this encounter
--- OUTSIDE RECORDS SUMMARY | 2024-08-17 17:24 | XMS_ITS | Encounter Summary ---
Author Organization [employer] Address [address] [place] [address] [address] [place] [address] Care Team Providers Care Marketing Communications Coordinator Name Role Phone Twila Murray MD Primary Care Provider +1- [phone] Reason for Visit * Reason Comments Med Refill Encounter Details Date Type Department Care Team ([facility] st Contact Info) Description 12/29/2023 Refill [facility] MED[facility]INE [address] [place], [place] [phone] Miguel Denson MD [address] [place], [place] [phone] Uncomplicated opioid use Social History Tobacco Use [...] Description 08/23/2024 11:00 AM EST Clinical Support [facility] [address] [place] [address] Yandy Patterson RN documented as of this encounter Visit Diagnoses Diagnosis Uncomplicated opioid use documented in this encounter Additional Health Concerns Assessment Noted Time PHQ-9 Depression Total Score: 24 023 9:57 AM EST documented as of this encounter Care Teams Marketing Communications Coordinator Relationship Specialty Start Date End Date Twila Murray MD [address] [place] [address] PCP - General Family Medicine 05/20/13 documented as of this encounter
--- OUTSIDE RECORDS SUMMARY | 2024-08-17 17:24 | XMS_ITS | Encounter Summary ---
Author Organization [employer] Address [address] [place] [address] [address] [place] [address] Care Team Providers Care Senior Chemical Process Engineer Name Role Phone Twila Murray MD Primary Care Provider +1- [phone] Encounter Details Date Type Department Care Team (Late Contact Info) Description 08/07/2023 Orders Only [address] [phone] Yandy Patterson RN Uncomplicated opioid dependence ([facility]) Social History Tobacco Use Types Packs/Day Years [...] Description 08/23/2024 11:00 AM EST Clinical Support [facility] [address] [place] [address] Yandy Patterson RN documented as of this encounter Visit Diagnoses Diagnosis Uncomplicated opioid dependence (CMS/HCC) documented in this encounter Additional Health Concerns Assessment Noted Time PHQ-9 Depression Total Score: 24 023 9:57 AM EST documented as of this encounter Care Teams Senior Chemical Process Engineer Relationship Specialty Start Date End Date Twila Murray MD [address] [place] [address] PCP - General Family Medicine 05/20/13 documented as of this encounter
--- OUTSIDE RECORDS SUMMARY | 2024-08-17 17:24 | XMS_ITS | Encounter Summary ---
Author Organization [employer] Address [address] [place] [address] [address] [place] [address] Care Team Providers Care Inventory Control Associate Name Role Phone Twila Murray MD Primary Care Provider +1- [phone] Encounter Details Date Type Department Care Team (Late st Contact Info) Description 07/25/2024 Telephone [facility] [address] [place] [address] Yandy Patterson RN Social History Tobacco Use Types Packs/Day Years [...] AM EDT documented as of this encounter Miscellaneous Notes * Telephone Encounter - Yandy Patterson RN - 07/25/2024 9:04 AM EST Telephone call received from patient informing repairer typewriter that he has to attend a 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 Appt for two weeks given. Will let pharmacy know that he may p/u his rx when he comes in. documented in this encounter Plan of Treatment Upcoming Encounters Date Type Department Care Team (Late st Contact Info) Description 08/23/2024 11:00 AM EST Clinical Support [facility] MED[facility]INE [address] [place] [address] Yandy Patterson RN documented as of this encounter Visit Diagnoses Not on filedocumented in this encounter Additional Health Concerns Assessment Noted Time PHQ-9 Depression Total Score: 24 023 9:57 AM EST documented as of this encounter Care Teams Inventory Control Associate Relationship Specialty Start Date End Date Twila Murray MD [address] [place] [phone] PCP - General Family Medicine 05/20/13 documented as of this encounter
--- OUTSIDE RECORDS SUMMARY | 2024-08-17 17:24 | XMS_ITS | Encounter Summary ---
Author Organization [employer] Address [address] [place] [address] [address] [place] [address] Care Team Providers Care Division Chief Name Role Phone Twila Murray MD Primary Care Provider +1- [phone] Reason for Visit * Reason Comments OBAT F/U Encounter Details Date Type Department Care Team (Latest Contact Info) Description 08/09/2024 10:00 AM EST Clinical Support [facility] MEDICINE [address] [place] [phone] Yandy Patterson RN Uncomplicated opioid dependence (CMS/HCC) (Primary Dx) Social History Tobacco Use Types Packs/Day Years [...] AM EDT documented as of this encounter Progress Notes * Yandy Patterson RN - 08/09/2024 10:00 AM EST Richi Uribe presents for follow-up for opioid use disorder. Intake date: 12/24/16. Has been in the program 7 years, 6 months. Current Suboxone dose of 12/3 mg daily. On a 2 week schedule. Behavioral health provider is Shakir Rice and Dr Meza. LFTs done: 08/11/23 Hep A status: Immunized in 2009 x 1 Hep B status: Immunized in early Hep C status: Non-reactive 08/11/23 HIV status: Non-reactive 08/11/23 [place] PAT reviewed by provider. Smoking status: 4-5 cigarettes when at work. LAST VISIT 07/12/24 TELEVISIT Richi called and said he was out of the area at his aunt's house and won't be back until about 5:30 today. He sounds alert and oriented. Speech clear, coherent and goal directed. Reports continuing to do well on suboxone. Denies illicit substance use, cravings or side effects. Patient asked what the pharmacy hours were for today and conventional underwriter informed him that the health center was closing at 1:00 p.m. today, and would be closed tomorrow. He said he was going to try to find someone to quill picking machine operator his script for him. Plan: Suboxone dosing schedule of 12/3 mg daily and management of side effects reviewed. Recovery support, harm reduction (including Narcan), and behavioral health attendance reviewed. Appointment for 2 weeks given. Patient expressed understanding and agreement with continuing plan of care. TODAY: 08/09/24 UTOX: +bup, binh, thc Richi presented today for OBAT RN IN PERSON VISIT for Opioid Use Disorder. He is alert and oriented. Speech clear, coherent and goal directed. Easily engaged, initiates conversation. 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 Has difficulty sleeping at night so when he gets home from work around 4 or 4:30 p.m. he said he goes to bed. Plan: Suboxone dosing schedule of 12/3 mg daily and management of side effects reviewed. Recovery support, harm reduction (including Narcan), and behavioral health attendance reviewed. Appointment for 2 weeks given. Patient expressed understanding and agreement with continuing plan of care. This information has been disclosed to you from records protected by federal confidentiality rules (42 CFR Part 2). The federal rules prohibit you from making any further disclosure of information inthis record that identifies a patient as having or having had a substance use disorder either directly, by reference to publicly available information, or through verification of such identification by another person unless further disclosure is expressly permitted by the written consent of the individual whose information is being disclosed or as otherwise permitted by (see2.3.1). The federal rules restrict any use of the information to investigate or prosecute with regard to a crime any patient with a substance use disorder, except as provided at 2.12??(5) and 2.65. documented in this encounter Plan of Treatment Upcoming Encounters Date Type Department Care Team (Late st Contact Info) Description 08/23/2024 11:00 AM EST Clinical Support [address] [address] Yandy Patterson RN documented as of this encounter Procedures Procedure Name Priority Date/Time Associated Diagnosis Comments POCT ANDREINA-14 URINE DRUG SCREEN Routine 08/09/2024 1:39 PM EST Uncomplicated opioid dependence (CMS/HCC) documented in this encounter Results * POCT ANDREINA-14 Urine Drug Screen (08/09/2024 1:39 PM EST) THC Positive Cocaine Screen, Urine Negative Opiate [...] OF CARE TEST ENTER/EDIT ORDERABLES Final Result documented in this encounter Visit Diagnoses Diagnosis Uncomplicated opioid dependence (CMS/HCC)- Primary documented in this encounter Additional Health Concerns Assessment Noted Time PHQ-9 Depression Total Score: 24 023 9:57 AM EST documented as of this encounter Care Teams Division Chief Relationship Specialty Start Date End Date Twila uMrray MD [address] [place] [address] PCP - General Family Medicine 05/20/13 documented as of this encounter
--- OUTSIDE RECORDS SUMMARY | 2024-08-17 17:24 | XMS_ITS | Encounter Summary ---
Author Organization [facility] Address [address] [place] [address] [address] [address] Care Team Providers Care Client Technical Professional Name Role Phone Twila Murray MD Primary Care Provider [phone] Reason for Visit * Reason Comments Med Refill Encounter Details Date Type Department Care Team (Late st Contact Info) Description 07/01/2023 Refill [facility] [address] [place], [place] [phone] Miguel Denson MD [address] [place], [place] [phone] Uncomplicated opioid use Social History Tobacco Use Types Packs/Day Years Used Date Smoking Tobacco: Every Day Cigarettes Smokeless Tobacco: Never Depression Answer Date Recorded Patient Health Questionnaire-9 Score 17 02/17/2023 Depression Answer Date Recorded Patient Health Questionnaire-2 Score 4 02/17/2023 Sex and Gender Information Value Date Recorded Sex Assigned at Male 05/19/2022 10:19 AM EDT Legal Sex Male 10:19 AM EDT Gender Identity Male 05/19/2022 10:19 AM EDT Sexual Orientation Straight 11/25/2022 8: 48 AM EDT documented as of this encounter Plan of Treatment Upcoming Encounters Date Type Department Care Team (Late st Contact Info) Description 08/23/2024 11:00 AM EST Clinical Support [facility] [address] [place], [place] [phone] Yandy Patterson RN documented as of this encounter Visit Diagnoses Diagnosis Uncomplicated opioid use documented in this encounter Additional Health Concerns Assessment Noted Time PHQ-9 Depression Total Score: 17 023 10:54 AM EDT documented as of this encounter Care Teams Client Technical Professional Relationship Specialty Start Date End Date Twila Murray MD [address] [place] [phone] PCP - General Family Medicine 05/20/13 documented as of this encounter
--- OUTSIDE RECORDS SUMMARY | 2024-08-17 17:24 | XMS_ITS | Encounter Summary ---
Author Organization [employer] Address [address] [place] [address] [address] [place] [address] Care Team Providers Care Social Economist Name Role Phone Twila Murray MD Primary Care Provider [phone] Encounter Details Date Type Department Care Team (Latest Contact Info) Description 08/09/2024 Travel Social History Tobacco Use Types Packs/Day Years [...] Upcoming Encounters Date Type Department Care Team ( st Contact Info) Description 08/23/2024 11:00 AM EST Clinical Support [facility] [address] [place] [address] Yandy Patterson RN documented as of this encounter Visit Diagnoses Not on filedocumented in this encounter Additional Health Concerns Assessment Noted Time PHQ-9 Depression Total Score: 24 023 9:57 AM EST documented as of this encounter Care Teams Social Economist Relationship Specialty Start Date End Date Twila Murray MD [address] [place] [address] PCP - General Family Medicine 05/20/13 documented as of this encounter
[2024-08-17] MEDS: Ondansetron ODT 4 MG TAB.RAPDIS TRANSLINGU (18:14)
[2024-08-17 20:25] VITALS: BP 122/63; PULSE 72; RESP 16; TEMP 36.8; O2SAT 98
--- NOTE | 2024-08-17 20:49 | ED.ABDPAIN ---
HPI - Abdominal Pain General Chief Complaint: Abdominal Pain Stated Complaint: Vomiting Time Seen by Provider: 08/17/24 20:15 History of Present Illness HPI narrative: Patient is a 29 old male presents today with having nausea vomiting diarrhea generalized malaise weakness. Has a history of migraine p.o. psych migraine headache. Have generalized malaise. No coughing or congestion. Has abdominal pain. Endorses marijuana use to 3 times a week. Related Data Previous Rx's ?Medication ?Instructions ?Recorded amoxicillin 875 mg-potassium 1 tab PO BID #20 tabs 12/20/22 clavulanate 125 mg tablet ibuprofen 600 mg tablet 600 mg PO Q8H PRN fever or pain 12/20/22 #20 tabs ibuprofen 400 mg tablet 400 mg PO Q6H PRN pain #20 tabs 08/17/24 ondansetron 4 mg disintegrating 4 mg PO TID PRN nausea and 08/17/24 tablet vomiting 5 days #10 tabs Allergies Allergy/AdvReac Type Severity Reaction Status Date / Time No Known Allergies Allergy Verified 08/17/24 15:06 Review of Systems Review of Systems Positive generalized malaise Yes all other systems are reviewed and are negative [facility] Past Medical History Attestation statement: The following information was validated with the patient. Social History Social History Advance Directives: No Advance Directives Information Provided: Yes Physical Exam ED Vital Signs: Vital Signs - 24 hr 08/17/24 15:03 08/17/24 20:25 08/17/24 21:58 Temperature 98.4 F 98.2 F 98.7 F Pulse Rate 75 72 74 Respiratory Rate 16 16 16 Blood Pressure 138/99 H 122/63 116/75 Pulse Oximetry 99 98 99 Oxygen Delivery Method Room Air Room Air Room Air BMI result Body Mass Index 24.3 Appearance: Alert. Oriented X3. No acute distress. Eyes: Pupils equal, round and reactive to light. ENT: Pharynx normal. Neck: Normal inspection. Neck supple. No lymph nodes noted. No crepitus CVS: Normal heart rate and rhythm. Pulses normal. Normal S1 and S2 Respiratory: No respiratory distress. Breath sounds normal. No Wheezing. No rales Abdomen: Soft and nontender. No rigidity. No distention. good BS x4 Skin: Skin warm and dry. Normal skin color. Normal skin turgor. Extremities: No lower extremity edema. Neurovascular intact to all extremities. No Lacerations. No Rash Neuro: Oriented X 3. No motor deficit. No sensory deficit. Moving all extermities. No slurred speech Medical Decision Making Medical Decision Making MDM Narrative: Patient had nausea vomiting generalized malaise abdominal pain. Also had history of having migraines. Also drank alcohol. There was no diarrhea. Has abdominal pain that was mostly diffuse but worse over the upper abdomen. The CT scan of the abdomen by my interpretation was negative for gross obstruction I reviewed radiology's reading which did not show any obstruction also noted was moderate amount of stool. This was explained to him. He had headache that was mild had a history of migraine the headache is associated with nausea vomiting very similar to his previous bouts of migraine. Treated with Reglan, Benadryl, IV fluids. Symptomatically feels much relief. Will discharge patient home. Close follow-up on an outpatient basis. Patient's white count was normal. Electrolytes were normal. Troponin is negative. LFTs are normal. Alcohol is 19. Flu COVID RSV were all negative there is no evidence for influenza. Will discharge patient home in stable condition. Differential Diagnosis Differential Diagnoses: The differential diagnosis associated with the presentation includes Gastroenteritis, appendicitis, flu, RSV, COVID, obstruction Admission/Observation Consideration of admission/observation: Escalation of care including admission/observation considered Given symptom improvement no need for admission Lab Data [facility] Lab Attestation statement: I reviewed the patient's lab results. 08/17/24 15:27 08/17/24 15:27 Labs: Lab Results 08/17/24 Range/Units 15:27 WBC 10.3 (4.8-10.8) X10*3/uL RBC 5.27 (4.60-5.80) X10*6/uL Hgb 15.3 (14.0-18.0) g/dl Hct 44.2 (42.0-52.0) % MCV 83.9 (80.0-98.0) fL MCH 29.0 (27.0-33.0) pg MCHC 34.6 (31.0-36.0) g/dl RDW 12.8 (11.0-16.0) % Plt Count 297 (160-400) X10*3/uL MPV 9.9 (9.4-12.4) fL Immature Gran % (Auto) 0.3 (0.0-0.4) % Neut % (Auto) 78.8 H (45-73) % Lymph % (Auto) 16.7 L (20-40) % [facility] % (Auto) 2.9 (2-11) % Eos % (Auto) 0.9 (0-4) % Baso % (Auto) 0.4 (0-2) % Lymph # (Auto) 1.7 (1.2-4.9) X10*3/uL [facility] # (Auto) 0.3 (0.1-1.2) X10*3/uL Eos # (Auto) 0.1 (0.0-0.4) X10*3/uL Baso # (Auto) 0.0 (0.0-0.2) X10*3/uL Abs Immat Gran (auto) 0.03 (0.00-0.03) X10*3/uL Absolute Neuts (auto) 8.2 (2.0-8.3) x10*3/uL Absolute Nucleated RBC 0.000 (0.0-0.012) X10*3/uL Nucleated RBC % (auto) 0.0 (0.0-0.2) /100WBC Sodium 139 (135-145) mmol/L Potassium 4.4 (3.3-5.1) mmol/L Chloride 103 (96-108) mmol/L Carbon Dioxide 25 (22-29) mmol/L Anion Gap 15 (12-20) BUN 18 H (9-16) mg/dL Creatinine 0.80 (0.5-1.4) mg/dL Estim Creat Clear Calc 139.4 Estimated GFR > 60 Random Glucose 103 (60-115) mg/dL Calcium 9.6 (8.4-10.2) mg/dL Magnesium 2.1 (1.6-2.6) mg/dL Total Bilirubin 0.4 (0.0-1.0) mg/dL AST 34 (5-37) U/L ALT 36 (0-40) U/L Alkaline Phosphatase 62 (39-117) U/L Troponin I High Sens < 2.7 (<3.5-35.0) ng/L Total Protein 8.1 H (6.5-8.0) g/dL Albumin 4.7 (3.5-5.0) g/dL Lipase 18 (8-78) U/L Ethyl Alcohol 19 mg/dL Influenza Type A (PCR) NEGATIVE (Negative) Influenza Type B (PCR) NEGATIVE (Negative) RSV RNA Qual (PCR) NEGATIVE (Negative) SARS-CoV-2 RNA (RT-PCR) NEGATIVE (Negative) Independent Interpretation I performed an independent interpretation of an: CT Scan (CT scan of the abdomen showed no overt obstruction) Radiology Impression Discussion of test interpretation with radiology: I have reviewed the radiologist's reading. Social Determinants Patient?s care significantly limited by Social Determinants of Health including: Problems related to primary support group History of alcohol use Medications Administered Discontinued Medications Generic Name Dose Route Start Last Admin Trade Name Freq PRN Reason Stop Dose Admin Diphenhydramine HCl 25 mg 08/17/24 20:48 08/17/24 21:17 Diphenhydramine Hcl 50 Mg/Ml Vial IVPUSH 08/17/24 20:49 25 mg ONCE ONE Administration Sodium Chloride 1,000 mls @ 999 mls/hr 08/17/24 21:00 08/17/24 21:17 Ns IV 08/17/24 22:00 999 mls/hr .Q1H1M AYE Administration Sodium Chloride 1,000 mls @ 999 mls/hr 08/17/24 21:00 08/17/24 21:17 Ns IV 08/17/24 22:00 999 mls/hr .Q1H1M YAE Administration Iohexol 85 ml 08/17/24 21:41 08/17/24 21:42 Iohexol 350 Mg/Ml 100 Ml Infus..Btl IV 08/17/24 21:42 85 ml ONCE ONE Administration Metoclopramide HCl 10 mg 08/17/24 20:48 08/17/24 21:17 Metoclopramide Hcl 10 Mg/2 Ml Vial IVPUSH 08/17/24 20:49 10 mg ONCE ONE Administration Ondansetron HCl 4 mg 08/17/24 18:12 08/17/24 18:14 Ondansetron Odt 4 Mg Tab.Rapdis TRANSLINGU 08/17/24 18:13 4 mg ONCE ONE Administration Discharge Plan Discharge Clinical Impression: Headache, migraine, Gastroenteritis Patient Disposition: Home, Self-Care Instructions: Migraine Headache (ED), Gastroenteritis (ED) Prescriptions: New ibuprofen 400 mg tablet 400 mg PO Q6H PRN (Reason: pain) Qty: 20 0RF ondansetron 4 mg tablet,disintegrating 4 mg PO TID PRN (Reason: nausea and vomiting) 5 Days Qty: 10 0RF No Action amoxicillin-pot clavulanate 875-125 mg tablet 1 tab PO BID Qty: 20 0RF ibuprofen 600 mg tablet 600 mg PO Q8H PRN (Reason: fever or pain) Qty: 20 0RF Referrals: [facility] [Primary Care Provider] - 08/19/24 Print Language: Georgian
[2024-08-17] MEDS: diphenhydrAMINE HCL 50 MG/ML VIAL 25 MG IVPUSH (21:17)
[2024-08-17] MEDS: Metoclopramide HCl 10 MG/2 ML VIAL IVPUSH (21:17)
[2024-08-17] MEDS: 0.9 % Sodium Chloride 1,000 ML 999 ML IV ×2 (21:17)
[2024-08-17 21:23] LABS: Ethanol 19 mg/dL
[2024-08-17] MEDS: iohexoL 350 MG/ML 100 ML INFUS..BTL 85 ML IV (21:42)
[2024-08-17 21:58] VITALS: BP 116/75; PULSE 74; RESP 16; TEMP 37.1; O2SAT 99
[2024-08-17 22:45] VITALS: BP 116/75; PULSE 74; RESP 16; TEMP 37.1; O2SAT 99
== END 2024-08-17 22:46 | disposition home or self-care (01) ==
PROVIDERS: Physician Assistant Medical; Emergency Provider Emergency Medicine Emergency Medical Services
DX: K52.9 Noninfective gastroenteritis and colitis, unspecified (principal); G43.909 Migraine, unspecified, not intractable, without status migrainosus; R07.89 Other chest pain; I49.8 Other specified cardiac arrhythmias; R10.2 Pelvic and perineal pain; R53.81 Other malaise; R11.2 Nausea with vomiting, unspecified; Z03.818 Encounter for observation for suspected exposure to other biological agents ruled out; Z51.81 Encounter for therapeutic drug level monitoring; Z79.899 Other long term (current) drug therapy
CPT/HCPCS: 0241U; 74177; 80053; 80307; 83690; 83735; 84484; 85025; 93005; 96361; 96374; 96375; 99284; J1200; J2765; Q9967

== ENCOUNTER → 2024-08-17 20:48 | Outpatient (BNV) | payer MEDICAID, SELFPAY | PROVIDERS: Emergency Provider Emergency Medicine Emergency Medical Services; Visit Provider Radiology Diagnostic Radiology | DX: K56.41 Fecal impaction (principal) | CPT/HCPCS: 74177 ==

== ENCOUNTER 2025-04-04 10:59 | Outpatient (REF) | payer OTHER, MEDICAID, SELFPAY ==
--- OUTSIDE RECORDS SUMMARY | 2025-04-04 10:00 | XMS_ITS | Encounter Summary ---
Author Organization [employer] Address [address] [facility] [address] [place] [address] Care Team Providers Care Sawmill Relief Worker Name Role Phone Miguel Denson MD Unavailable [phone] Clara Thomas MD Primary Care Provide r Reason for Visit * Reason Comments OBAT F/U Encounter Details Date Type Department Care Team (Latest Contact Info) Description 04/04/2025 10:00 AM EDT Clinical Support [facility] [address] [place] [phone] Yandy Patterson RN Opioid type dependence, continuous (CMS/HCC) (Primary Dx) Social History Tobacco Use Types Packs/Day Years Used Date Smoking Tobacco: Former Cigarettes Passive Smoke Exposure: Past Smokeless Tobacco: Never Alcohol Answer Date Recorded How often do you have a drink containing alcohol ? 2 02/20/2025 How many drinks containing a lcohol do you have on a typical day when you are drinking? 2 02/20/2025 How often do you have six or more drinks on one occasion? 1 02/20/2025 Depression Answer Date Recorded Patient Health Questionnaire-9 Score 24 07/10/2023 Patient Health Questionnaire-9 Score 24 07/10/2023 Last PHQ-9: Questionnaire Data Not on file 1 09/10/2022 Housing Stability Answer Date Recorded What is your housing situation today? I have osmar askew 09/20/[address] you li ve. Do you have problems with any of the following? None of the above 09/20/2024 Food Insecurity Answer Date Recorded Within the past 12 months, y ou worried that your food would run out before you got money to buy more: Never True 09/20/2024 Within the past 12 months,th e food you bought just didn't last and you didn't have enough money to get more: Never True 10/2024 Transportation Answer Date Recorded In the past 12 months, has l ack of transportation kept you from medical appts, meetings, work or from getting things needed for daily living? No 09/20/2024 Utilities Answer Date Recorded In the past 12 months, has t he electric, gas, oil or water company threatened to shut off services in your home? No 09/20/2024 Depression Answer Date Recorded Patient Health Questionnaire-2 Score 6 07/10/2023 Internet Access Answer Date Recorded Internet Access Q1 Yes 09/20/2024 Internet Access Q2 Not on file 09/20/2024 Sex and Gender Information Value Date Recorded Sex Assigned at Male 05/19/2022 10:19 AM EDT Legal Sex Male 10:19 AM EDT Gender Identity Male 05/19/2022 10:19 AM EDT Sexual Orientation Straight 11/25/2022 8: 48 AM EDT documented as of this encounter Plan of Treatment Upcoming Encounters Date Type Department Care Team (Late st Contact Info) Description 04/20/2025 11:30 AM EDT Telemedicine [facility] [address] [place] [phone] Clara Thomas MD [address] [place] [phone] 05/02/2025 10:15 AM EDT Office Visit [facility] [address] [place] [phone] Miguel Denson MD [address] [place] [phone] documented as of this encounter Procedures Procedure Name Priority Date/Time Associated Diagnosis Comments POCT ANDREINA-14 URINE DRUG SCREEN Routine 04/04/2025 11:21 AM EDT Opioid type dependence, continuous (CMS/HCC) documented in this encounter Results * (ABNORMAL) POCT ANDREINA-14 Urine Drug Screen (04/04/2025 11:21 AM EDT) THC Positive(A) Negative Cocaine Screen, Urine Negative Negative Opiate Screen, Urine Negative Negative Methamphetamine Screen Urine Negative Negative Amphetamine Screen, Urine Negative Negative Benzodiazepines Screen, Urine Positive(A) Negative Barbiturate Screen, Urine Negative Negative Methadone Screen, Urine Negative Negative Buprenophine Screen, Urine Positive(A) Negative TCA, Urine Negative Negative MDMA Urine Negative Negative ng/mL Oxycodone Screen, Urine Negative Negative Phencyclidine (PCP), Urine Negative Negative Fentanyl, Urine Negative Negative Urine Urine specimen obtained by clean catch procedure / Unknown 04/04/2025 11:21 AM EDT Miguel Denson MD POINT OF CARE TEST ENTER/EDIT ORDERABLES Final Result documented in this encounter Visit Diagnoses Diagnosis Opioid type dependence, continuous (CMS/[facility])- Primary Opioid type dependence, continuous documented in this encounter Additional Health Concerns Assessment Noted Time PHQ-9 Depression Total Score: 24 023 9:57 AM EST documented as of this encounter Care Teams Sawmill Relief Worker Relationship Specialty Start Date End Date Clara Thomas MD [address] [place] [address] PCP - General Internal Medicine 03/14/25 Miguel Denson MD [address] [place] [address] Addiction Medicine 09/29/24 documented as of this encounter
[2025-04-04 13:20] LABS: MANUAL DIFF FLAG NO
[2025-04-04 13:22] LABS: Hematocrit 37.5 % (42.0-52.0); Hemoglobin 12.9 g/dl (14.0-18.0); Imm Gran Abs Auto 0.02 X10*3/uL (0.00-0.03); Imm Gran Pct Auto 0.2 % (0.0-0.4); Lymphocytes Absolute Auto 1.9 X10*3/uL (1.2-4.9); Mean Corpuscular HGB Conc 34.4 g/dl (31.0-36.0); Mean Corpuscular Hemoglobin 28.5 pg (27.0-33.0); Mean Corpuscular Volume 82.8 fL (80.0-98.0); NRBC Abs Auto 0.000 X10*3/uL (0.0-0.012); NRBC Pct Auto 0.0 /100WBC (0.0-0.2); Platelet Count 242 X10*3/uL (160-400); Red Blood Count 4.53 X10*6/uL (4.60-5.80); White Blood Count 8.2 X10*3/uL (4.8-10.8)
[2025-04-04 13:50] LABS: Hemoglobin A1C 119.6661 umol/L; Total Hemoglobin (HGBA1C) 3387.8448 umol/L
[2025-04-04 14:30] LABS: Alanine Aminotransferase 72 U/L (0-40); Albumin Level 4.3 g/dL (3.5-5.0); Alkaline Phosphatase 67 U/L (39-117); Anion Gap 12 (12-20); Aspartate Amino Transferase 83 U/L (5-37); Blood Urea Nitrogen 9 mg/dL (9-16); Calcium 8.9 mg/dL (8.4-10.2); Carbon Dioxide 26 mmol/L (22-29); Chloride 109 mmol/L (96-108); Cholesterol 146 mg/dL (<200); Estimated Glomerular Filt Rate > 60; HDL Cholesterol 55 mg/dL (>40); Potassium 3.0 mmol/L (3.3-5.1); Sodium 144 mmol/L (135-145); Total Protein 6.7 g/dL (6.5-8.0); Triglycerides 203 mg/dL (<150)
--- OUTSIDE RECORDS SUMMARY | 2025-04-04 14:55 | XMS_ITS | Encounter Summary ---
Author Organization [employer] Address [address] [facility] 7[address] [place] [address] Care Team Providers Care Rubber Tire Curer Name Role Phone Miguel Denson MD Unavailable [phone] Clara Thomas MD Primary Care Provide r Reason for Visit * Reason Onset Date Comments Med Refill 03/28/2025 Encounter Details Date Type Department Care Team (Late st Contact Info) Description 03/28/2025 Refill [facility] MEDICINE [address] [place] [address] Yandy Patterson RN Uncomplicated opioid dependence (CMS/HCC) Social History Tobacco Use Types Packs/Day Years [...] Info) Description 04/20/2025 11:30 AM EDT Telemedicine [facility] MEDICINE [address] [place] [phone] Clara Thomas MD [address] [place] [phone] 05/02/2025 10:15 AM EDT Office Visit [facility] MED[facility]INE [address] [place] [phone] Miguel Denson MD [address] [place] [phone] documented as of this encounter Visit Diagnoses Diagnosis Uncomplicated opioid dependence (CMS/HCC) documented in this encounter Additional Health Concerns Assessment Noted Time PHQ-9 Depression Total Score: 24 023 9:57 AM EST documented as of this encounter Care Teams Rubber Tire Curer Relationship Specialty Start Date End Date Clara Thomas MD [address] [place] [phone] PCP - General Internal Medicine 03/14/25 Miguel Denson MD [address] [place] [phone] Addiction Medicine 09/29/24 documented as of this encounter
--- OUTSIDE RECORDS SUMMARY | 2025-04-04 14:55 | XMS_ITS | Encounter Summary ---
Author Organization [employer] Address [address] [facility] 7t [place] [address] Care Team Providers Care Lacquer Polisher Name Role Phone Twila Murray MD Primary Care Provider [phone]- [phone] Miguel Denson MD Unavailable [phone] Clara Thomas MD Primary Care Provide r Encounter Details Date Type Department Care Team (Late st Contact Info) Description 08/07/2023 Orders Only [facility] MEDICINE [address] [place] [address] Yandy Patterson RN Uncomplicated opioid dependence (CMS/HCC) [...] Info) Description 04/20/2025 11:30 AM EDT Telemedicine [facility] MEDICINE [address] [place] [address] [phone] Clara Thomas MD [address] [place] [phone] 05/02/2025 10:15 AM EDT Office Visit [facility] MEDICINE [address] [place] [phone] Miguel Denson MD [address] [place] [address] [phone] documented as of this encounter Visit Diagnoses Diagnosis Uncomplicated opioid dependence (CMS/HCC) documented in this encounter Additional Health Concerns Assessment Noted Time PHQ-9 Depression Total Score: 24 023 9:57 AM EST documented as of this encounter Care Teams Lacquer Polisher Relationship Specialty Start Date End Date Twila Murray MD [address] [place] [phone] PCP - General Family Medicine 05/20/13 01/09/25 Clara Thoams MD [address] [place] [address] [phone] PCP - General Internal Medicine 03/14/25 Miguel Denson MD [address] [place] [address] [phone] Addiction Medicine 09/29/24 documented as of this encounter
--- OUTSIDE RECORDS SUMMARY | 2025-04-04 14:55 | XMS_ITS | Encounter Summary ---
Author Organization [employer] Address [address] [place] [address] 7[address] [place] [address] Care Team Providers Care Coffee Shop Aide Name Role Phone Twila Murray MD Primary Care Provider + [phone] Miguel Denson MD Unavailable [phone] Clara Thomas MD Primary Care Provide r Reason for Visit * Reason Comments Med Refill Encounter Details Date Type Department Care Team (Late st Contact Info) Description 07/01/2023 Refill [facility] MEDICINE [address] [place], [place] [phone] Miguel Denson MD [address] [place], [place] [phone] Uncomplicated opioid use Social History Tobacco Use [...] Info) Description 04/20/2025 11:30 AM EDT Telemedicine [facility] MEDICINE [address] [place], [place] [phone] Clara Thomas MD [address] [place] [phone] 05/02/2025 10:15 AM EDT Office Visit [facility] MEDICINE [address] [place] [address] [phone] Miguel Denson MD [address] [place] [address] [phone] documented as of this encounter Visit Diagnoses Diagnosis Uncomplicated opioid use documented in this encounter Additional Health Concerns Assessment Noted Time PHQ-9 Depression Total Score: 17 023 10:54 AM EDT documented as of this encounter Care Teams Coffee Shop Aide Relationship Specialty Start Date End Date Twila Murray MD [address] [place] [address] [phone] PCP - General Family Medicine 05/20/13 01/09/25 Clara Thomas MD [address] [place] [address] [phone] PCP - General Internal Medicine 03/14/25 Miguel Denson MD [address] [place] [address] [phone] Addiction Medicine 09/29/24 documented as of this encounter
--- OUTSIDE RECORDS SUMMARY | 2025-04-04 14:55 | XMS_ITS | Clinical Summary ---
Author Organization [employer] Address [address] [facility] [address] [place] [address] Care Team Providers Care Billing Specialist Name Role Phone Miguel Denson MD Unavailable [phone] Clara Thomas MD Primary Care Provide r Allergies No known active allergies Medications * [...] MG per sublingual filmIndication s:Uncomplicate d opioid dependence (CMS/HCC) Place 1 Film under the tongue Once per day for 28 days. 28 Film 03/31/20 25 025 Active buprenorphine- naloxone (Suboxone) 12-3 MG per sublingual filmIndication s:Uncomplicate d opioid dependence (CMS/HCC) Place 1 Film under the tongue Once per day for 28 days. 28 Film 03/03/20 25 025 Discontinued(Re order (will not trigger notification to Pharmacy)) Active Problems Problem Noted Date Diagnosed Date Palpitations 02/20/2025 Assessment & Plan (02/20/2025 5:02 PM EDT): TSH will be check Cardiology referral Dyspnea on exertion 02/20/2025 Assessment & Plan (02/20/2025 5:01 PM EDT): I will refer patient to cardiology Generalized abdominal pain 08/18/2024 Overview (08/18/2024): -seen in Er 08/18/24 CT IMPRESSION: No acute findings. Moderate colonic fecal retention. Correlate for constipation. Preventative health care 05/26/2023 Overview (09/29/2024): -next physical exam due after -eye care facilitated by -dental home is -health care proxy YODIT (generalized anxiety disorder) 10/28/2022 Assessment & Plan (02/20/2025 5:03 PM EDT): Continue to follow with psychiatrist and therapist I explain to patient I can not prescribe for him benzodiazepines Assessment & Plan (07/10/2023 10:50 AM EST): PROGRESS NOTE: ID: Richi is a 28 y.o. Decline to answer straight-identified cis-male (pronouns he/him/his) with previous documented hx of Depression, Anxiety, and Opioid Use Disorder services including psychopharmacology who presents for Addiction Problem, Anxiety, and Depression. He lives with his and son, currently not working receiving unemployment. He is connected with Psychiatrist from [facility], has no therapist at the moment. [...] past 12 months): Keep seen Psychiatrist at [facility] Behavioral Health Integration Plan: Internal Follow up with [facility] and External OP therapy referral Patient Self Plan: Patient to utilize skills provided in intervention , Patient to reach out to [facility] team as needed, and Comply with medication Chronic pain syndrome 06/19/2022 Nicotine dependence 01/31/2022 Opioid dependence 01/31/2022 Assessment & Plan (02/20/2025 5:03 PM EDT): C/w suboxone program Assessment & Plan (07/10/2023 10:50 AM EST): PROGRESS NOTE: ID: Richi is a 28 y.o. Decline to answer straight-identified cis-male (pronouns he/him/his) with previous documented hx of Depression, Anxiety, and Opioid Use Disorder MH services including psychopharmacology who presents for Addiction Problem, Anxiety, and Depression. He lives with his and son, currently not working receiving unemployment. He is connected with Psychiatrist from [facility], has no therapist at the moment. [...] past 12 months): Keep seen Psychiatrist at [facility] Behavioral Health Integration Plan: Internal Follow up with [facility] and External OP therapy referral Patient Self Plan: Patient to utilize skills provided in intervention , Patient to reach out to [facility] team as needed, and Comply [...] activation and self-love. He is connected with [facility] for OP services. Provided education [...] benefit from continuation of OP services with [facility] providers. At this time Richi Uribe meets criteria for Visit Diagnoses: Problem List Items Addressed This Visit Other Moderate episode of recurrent major depressive disorder (CMS/HCC) Opioid dependence (CMS/HCC) Patient ready to address current needs Richi is already engage in services. Strengths include willing to speak up and advocate for himself. PLAN: 1. Follow up with [facility]: Recommended for follow-up: during OBAT appts 2. Patient goal is to maintaing sobriety and improve mental health 3. Behavioral Recommendations a. Ind. Therapy b. Medication Management c. Use of coping skills d. [facility] contact info for extra support Backache 05/13/2013 Moderate episode of recurrent major depressive d isorder 05/13/2013 Assessment & Plan (02/20/2025 5:04 PM EDT): Continue to follow with psychiatrist and therapist Assessment & Plan (02/17/2023 11:56 AM EDT): [...] activation and self-love. He is connected with [facility] for OP services. Provided education [...] benefit from continuation of OP services with [facility] providers. At this time Richi Uribe meets criteria for Visit Diagnoses: Problem List Items Addressed This Visit Other Moderate episode of recurrent major depressive disorder (CMS/HCC) Opioid dependence (CMS/HCC) Patient ready to address current needs Richi is already engage in services. Strengths include willing to speak up and advocate for himself. PLAN: 1. Follow up with [facility]: Recommended for follow-up: during OBAT appts 2. Patient goal is to maintaing sobriety and improve mental health 3. Behavioral Recommendations a. Ind. Therapy b. Medication Management c. Use of coping skills d. [facility] contact info for extra support Encounters Date Type Department Care Team Description 04/04/2025 10:00 AM EDT Clinical Support [address] [address] Yandy Patterson RN Opioid type dependence, continuous (CMS/HCC) (Primary Dx) 04/04/2025 Travel 03/28/2025 Refill [facility] [address] [place] [phone] Yandy Patterson RN Uncomplicated opioid dependence (CMS/HCC) 03/14/2025 Telephone [facility] [address] [place] [phone] Clara Thomas MD Nurse Triage 03/09/2025 Telephone [facility] [address] [place] [phone] Yandy Patterson RN 03/09/2025 Refill [facility] [address] [place] [phone] Yandy Patterson RN 03/07/[address] [address] Yandy Patterson RN 03/03/2025 Refill [facility] [address] [place] [phone] Yandy Patterson RN Uncomplicated opioid dependence (CMS/HCC) 02/20/2025 1:00 PM EDT Office Visit [facility] [address] [place] [phone] Clara Thomas MD Moderate episode of recurrent major depressive disorder (CMS/HCC) (Primary Dx); Opioid dependence with opioid-induced mood disorder (CMS/HCC); YODIT (generalized anxiety disorder); Palpitations; Dyspnea on exertion 02/20/2025 Travel 02/17/2025 Telephone [facility] [address] [place] [phone] Clara Thomas MD chart prep 02/13/2025 Patient Outreach [facility] [address] [place] [address] Clara Thomas MD Pre-visit Planning (SDOH was already completed) 02/07/2025 Telephone [facility] [address] [place] [phone] Yandy Patterson RN 02/07/2025 Travel 02/06/2025 Telephone [facility] [address] [place] [address] [place] [address] Yandy Patterson RN 02/01/2025 Refill [facility] [address] [place] [address] Yandy Patterson RN Uncomplicated opioid dependence ([facility]) 01/11/2025 Telephone [facility] [address] [place] [address] Richi Oglesby MD 01/11/2025 Refill [facility] [address] [place] [address] Yandy Patterson RN Uncomplicated opioid dependence ([facility]) 01/10/2025 10:00 AM EDT Office Visit [facility] [address] [place] [address] Miguel Denson MD Opioid use disorder in remission (Primary Dx); Tobacco use disorder 01/10/2025 Travel 01/04/2025 Refill [facility] [address] [place] [address] Yandy Patterson RN Uncomplicated opioid dependence ([facility]) from Last 3 Months Immunizations Immunization Administration Dates Next Due DTaP 06/15/1998, 7,1994,08/27,1994 HPV, Quadrivalent 11/25/2012,07/04/2010 Hep A, ped/adol, 2 dose 07/04/2010 Hep B, Adolescent or Pediatric 1994,1994,1994 Hib ([facility]) 10/06/1996, 5,1994,06/03 IPV 05/15/1998, 7,1994,09/06,1994 Influenza, IIV3, injectable 07/04/2010,1 09/03/2008,05/16/2008,05/13 MMR 06/15/1998,06/23/1995 Meningococcal MCV4P ACYW-135 05/13/2006 TD (adult), 2 Lf tetanus tox oid, preservative free, adsorbed 05/07/2018,12/19/2004 Tdap 07/03/2009 Varicella 05/16/2008,03/10/2006 Social History Tobacco Use Types Packs/Day Years Used Date Smoking Tobacco: Former Cigarettes Passive Smoke Exposure: Past Smokeless Tobacco: Never Tobacco Cessation:Counseling Given: Not Answered Alcohol Answer Date Recorded [...] Sign Reading Time Taken Comments Blood Pressure 110/68 02/20/2025 1:38 PM EDT Pulse 108 02/20/2025 1:09 PM EDT Temperature 36 C (96.8 F) 02/20/2025 1:09 PM EDT Respiratory Rate 17 02/20/2025 1:09 PM EDT Oxygen Saturation 98% 02/20/2025 1:09 PM EDT Inhaled Oxygen Concentration - - Weight 85.4 kg (188 lb 3.2 oz) 02/20/2025 1:09 P M EDT Height 175.3 cm (5' 9 ) 02/20/2025 1:09 PM EDT Body Mass Index 27.79 02/20/2025 1:09 PM EDT Plan of Treatment Upcoming Encounters Date Type Department Care Team (Late st Contact Info) Description 04/20/2025 11:30 AM EDT Telemedicine [facility] [address] [place] [address] [phone] Clara Thomas MD [address] [place] [address] [phone] 05/02/2025 10:15 AM EDT Office Visit [facility] [address] [place] [address] [phone] Miguel Denson MD [address] [place] [address] [phone] Health Maintenance Due Date Last Done Comments Family Planning (PISQ) 2009 Hepatitis A Vaccines (2 of 2 - 2-dose series) 01/02/2011 07/04/2010 HPV Vaccines (3 - Male 3-dose series) 02/17/2013 11/25/2012, 07/04/2010 Depression Monitoring 01/09/2024 07/10/2023, 023 COVID-19 Vaccine ( - season) 2025 02/15/2022, 01/17/2022 Influenza Vaccine (#1) 2025 0, 07/03/2009, 05/16/2008, Additional history exists SDOH Screening 09/20/2025 09/20/2024 Alcohol/Substance Use Screening 02/20/2026 02/20/2025 Disability Screening 02/20/2026 02/20/2025 Tobacco Screening 02/20/2026 02/20/2025 DTaP/Tdap/Td Vaccines (8 - Td or Tdap) [...] C Screening Completed 08/11/2023 , 11/19/2021, 08/16/2021 Meningococcal B Vaccine Aged Out No l onger eligible based on patient's age to complete this topic Pneumococcal Vaccine: Pediatrics (0 to 5 Years) and At-Risk Patients (6 to 49) Years Aged Out No longer eligible based on patient's age to complete this topic RSV under 20 months Aged Out No longe r eligible based on patient's age to complete this topic Rotavirus Vaccines Aged Out No longer eligible based on patient's age to complete this topic Procedures Procedure Name Priority Date/Time Associated Diagnosis Comments POCT ANDREINA-14 URINE DRUG SCREEN Routine 04/04/2025 11:21 AM EDT Opioid type dependence, continuous (CMS/HCC) TSH W/REFLEX TO FT4 Routine 04/04/2025 1 1:05 AM EDT Moderate episode of recurrent major depressive disorder (CMS/HCC) VITAMIN D,25-OH,TOTAL,IA Routine 04/04/2025 11:05 AM EDT Moderate episode of recurrent major depressive disorder (CMS/HCC) Opioid dependence with opioid-induced mood disorder (CMS/HCC) LIPID PANEL, STANDARD Routine 04/04/2025 11:05 AM EDT Moderate episode of recurrent major depressive disorder (CMS/HCC) Opioid dependence with opioid-induced mood disorder (CMS/HCC) HEMOGLOBIN A1C Routine 04/04/2025 11:05 AM EDT Moderate episode of recurrent major depressive disorder (CMS/HCC) Opioid dependence with opioid-induced mood disorder (CMS/HCC) COMPREHENSIVE METABOLIC PANEL Routine 04/04/2025 11:05 AM EDT Moderate episode of recurrent major depressive disorder (CMS/HCC) Opioid dependence with opioid-induced mood disorder (CMS/HCC) CBC WITH AUTO DIFFERENTIAL Routine 04/04/2025 11:05 AM EDT Moderate episode of recurrent major depressive disorder (CMS/HCC) Opioid dependence with opioid-induced mood disorder (CMS/HCC) POCT ANDREINA-14 URINE DRUG SCREEN Routine 01/10/2025 9:27 AM EDT Opioid use disorder in remission HEPATITIS C AB W/REFL TO HCV RNA, QN, PCR Routine 08/11/2023 10:53 AM EST Uncomplicated opioid use HIV 1/2 ANTIGEN/ANTIBODY, FOURTH GENERATION W/RFL Routine 08/11/2023 10:53 AM EST Uncomplicated opioid use from Last 3 Months or Most Recently Relevant to Health Maintenance Results * (ABNORMAL) POCT ANDREINA-14 Urine Drug Screen (04/04/2025 11:21 AM EDT) Only the most recent of2 resultswithin the time period is included. THC Positive(A) Negative Cocaine Screen, Urine Negative [...] procedure / Unknown 04/04/2025 11:21 AM EDT us Miguel Denson MD POINT OF CARE TEST ENTER/EDIT ORDERABLES Final Result * (ABNORMAL) Vitamin D, 25-Hydroxy, Total, Immunoassay (04/04/2025 11:05 AM EDT) Vitamin D 25-OH Total 22.6(L) >30 ng/mL [facility] Comment: Health Based Reference Values*< 20 ng/mL Jaorcdtjm20-37 ng/mL Insufficient> 30 ng/mL Sufficient*Otilia SCHMIDT. N Engl J Med. 2007;357:266-280There is no well-established upper level of normal vitamin Dlevels. Some laboratories use 50 ng/mL as an upper limit ofnormal. However, toxicity is patient-dependent and may occurat any level. Careful correlation with the patient'spresentation is necessary and, if there is concern forvitamin D toxicity, treatment should be consideredirrespective of the serum level.Care must be taken in interpreting Vitamin D results fromdifferent laboratories and methodologies. Published datademonstrated that results from patients undergoinghemodialysis may show a negative bias when tested withvarious automated 25-OH vitamin D assays when compared toLC-MS/MS.When testing samples from patients whose predominant form ofVitamin D is Vitamin D2, such as patients receiving VitaminD2 supplementation, results that are subtherapeutic shouldbe confirmed with another method such as LC-MS/MS. Blood Venous blood specimen / Unknown 04/04/2025 11:05 AM EDT 04/04/2025 1:20 PM EDT us Clara Rush MD LAB BLOOD ORDERABLES Final Result [facility] [address] [place] [phone] * TSH with Reflex to Free T4 (04/04/2025 11:05 AM EDT) TSH reflex Free T4 1.80 0.32 - 4.0 uIU/mL [facility] Blood Venous blood specimen / Unknown 04/04/2025 11:05 AM EDT 04/04/2025 1:20 PM EDT Clara Rush MD LAB BLOOD ORDERABLES Final Result [facility] [address] [place] [phone] * (ABNORMAL) CBC auto differential (04/04/2025 11:05 AM EDT) Pathologist [facility] White Blood Count 8.2 4.8 - 10.8 X10*3/uL [facility] Red Blood Count 4.53(L) 4.60 - 5.80 X10*6/uL [facility] Hemoglobin 12.9(L) 14.0 - 18.0 g/dl [facility] Hematocrit 37.5(L) 42.0 - 52.0 % [facility] Mean Corpuscular Volume 82.8 80.0 - 98.0 fL [facility] Mean Corpuscular Hemoglobin 28.5 27.0 - 33.0 pg [facility] Mean Corpuscular HGB Conc 34.4 31.0 - 36.0 g/dl [facility] Red Cell Distribution Width 13.2 11.0 - 16.0 % [facility] Platelet Count 242 160 - 400 X10*3/uL [facility] Mean Platelet Volume 10.6 9.4 - 12.4 fL [facility] Neutrophils Percent Auto 69.1 45 - 73 % [facility] Imm Gran Pct Auto 0.2 0.0 - 0.4 % [facility] Lymphocytes Percent Auto 22.7 20 - 40 % [facility] Monocytes Percent Auto 4.9 2 - 11 % [facility] Eosinophils Percent Auto 2.7 0 - 4 % [facility] Basophils Percent Auto 0.4 0 - 2 % [facility] NRBC Pct Auto 0.0 0.0 - 0.2 /100WBC [facility] Neutrophils Absolute Auto 5.7 2.0 - 8.3 x10*3/uL [facility] Imm Gran Abs Auto 0.02 0.00 - 0.03 X10*3/uL [facility] Lymphocytes Absolute Auto 1.9 1.2 - 4.9 X10*3/uL [facility] Monocytes Absolute Auto 0.4 0.1 - 1.2 X10*3/uL [facility] Eosinophils Absolute Auto 0.2 0.0 - 0.4 X10*3/uL [facility] Basophils Absolute Auto 0.0 0.0 - 0.2 X10*3/uL [facility] NRBC Abs Auto 0.000 0.0 - 0.012 X10*3/uL [facility] Blood Venous blood specimen / Unknown 04/04/2025 11:05 AM EDT 04/04/2025 1:13 PM EDT us Clara Rush MD LAB BLOOD ORDERABLES Final Result [facility] [address] [place] [phone] * Hemoglobin A1c (04/04/2025 11:05 AM EDT) Hemoglobin A1c 5.4 <6.0 % [facility] Comment:Hemoglobin A1C Refer ence Range Adults: 4.8 - 6.0 % Non diabetic: < 6.0 % Goal: < 7.0 %Additional Action Suggested: > 8.0 %Note: Hemoglobin A1c results are invalid for patients with abnormal amounts of HbF. Blood transfusions may impact the HbA1c concentration in the patient sample. Estimated Average Glucose 108 mg/dL [facility] Comment:eAG = Estimated ave rage glucose which is %A1C expressed asaverage glucose, using the formula of the F2M-TgweypyKmqfwwe Glucose study (ADAG), Diabetes Care, Vol.31,#8,2007 Blood Venous blood specimen / Unknown 04/04/2025 11:05 AM EDT 04/04/2025 1:13 PM EDT us Clara Rush MD LAB BLOOD ORDERABLES Final Result Performing Organization Address [facility] Co de Phone Number [facility] [address] [place] [address] [phone] * (ABNORMAL) Lipid Panel, Standard (04/04/2025 11:05 AM EDT) Triglycerides 203(H) <150 mg/dL [facility] Comment:Desirable Triglyceri de: less than 150 mg/dLBorderline High Triglyceride 150-199 mg/dLHigh Triglyceride: 200-499 mg/dLVery High Triglyceride: greater than or equal to 5OO mg/dL Cholesterol 146 <200 mg/dL [facility] Comment:Desirable Cholestero l: less than 200 mg/dLBorderline High Cholesterol: 200-239 mg/dLHigh Cholesterol: greater than 239 mg/dL LDL Cholesterol Calculated 51 <100 mg/dL [facility] Comment:Desirable LDL: less than 100 mg/dLNear Optimal/Above Optimal LDL: 110- 129 mg/dLBorderline High LDL: 130-159 mg/dLHigh LDL: 160-189 mg/dLVery High LDL: greater than or equal to 190 mg/dL HDL Cholesterol 55 >40 mg/dL [facility] Comment:Desirable HDL: great er than 40 mg/dL Note: This HDL assay may give artificially low results in patients with liver disease. Blood Venous blood specimen / Unknown 04/04/2025 11:05 AM EDT 04/04/2025 1:20 PM EDT us Clara Rush MD LAB BLOOD ORDERABLES Final Result Performing Organization Address [facility]/ZIP Co de Phone Number [facility] [address] [place] [phone] * (ABNORMAL) Comprehensive Metabolic Panel (04/04/2025 11:05 AM EDT) Sodium 144 135 - 145 mmol/L [facility] Potassium 3.0(L) 3.3 - 5.1 mmol/L [facility] Chloride 109(H) 96 - 108 mmol/L [facility] Carbon Dioxide 26 22 - 29 mmol/L [facility] Anion Gap 12 12 - 20 [facility] Urea Nitrogen (BUN) 9 9 - 16 mg/dL [facility] Creatinine, Serum 0.71 0.5 - 1.4 mg/dL [facility] Estimated Glomerular Filt Rate >60 [facility] Comment:Chronic Kidney Disea se: Estimated GFR < 60 mL/min/1.98m9Exqdkj Kidney Disease: Estimated GFR < 15 mL/min/1.73m2 Glucose 125(H) 60 - 115 mg/dL [facility] Calcium 8.9 8.4 - 10.2 mg/dL [facility] Bilirubin, Total 0.3 0.0 - 1.0 mg/dL [facility] Aspartate Amino Transferase 83(H) 5 - 37 U/L [facility] Alanine Aminotransferase 72(H) 0 - 40 U/L [facility] Total Protein 6.7 6.5 - 8.0 g/dL [facility] Albumin Level 4.3 3.5 - 5.0 g/dL [facility] Alkaline Phosphatase 67 39 - 117 U/L [facility] Blood Venous blood specimen / Unknown 04/04/2025 11:05 AM EDT 04/04/2025 1:20 PM EDT us Clara Rush MD LAB BLOOD ORDERABLES Final Result [facility] [address] [place] [phone] * Hepatitis C Antibody with Reflex to HCV, RNA, Quantitative, Real-Time PCR (08/11/2023 10:53 AM EST) Hepatitis C Antibody Nonreactive Nonreactive [facility] Comment:Antibodies to HCV no t detected; does not exclude early acuteHCV infection. Blood Venous blood specimen / Unknown 08/11/2023 10:53 AM EST 08/11/2023 1:43 PM EST Miguel Denson MD LAB BLOOD ORDERABLES Final Res ult Performing Organization Address [facility]/ZIP Co de Phone Number [facility] [address] [place] [address] [phone] * HIV-1/2 Antigen and Antibodies, Fourth Generation, with Reflexes (08/11/2023 10:53 AM EST) [facility] HIV AB/AG Nonreactive Nonreactive [facility] Comment:HIV-1 p24 Ag and/or HIV-1/HIV-2 Ab not detected.A test result that is nonreactive does not exclude thepossibility of exposure to or infection with HIV-1 and/orHIV-2. Nonreactive results in this assay for individualswith prior exposure to HIV-1 and/or HIV-2 may be due toantigen and antibody levels that are below the limit ofdetection of this assay.The [employer] HIV Ag/Ab Combo assay result andsupplemental assay results should be interpreted inconjunction with the patient's clinical presentation,history and other laboratory results. If the results areinconsistent with clinical evidence, additional testing issuggested to confirm the result. Blood Venous blood specimen / Unknown 08/11/2023 10:53 AM EST 08/11/2023 1:43 PM EST Miguel Denson MD LAB BLOOD ORDERABLES Final Res ult Performing Organization Address [facility]/ZIP Co de Phone Number [facility] [address] [place] [phone] [phone] from Last 3 Months or Most Recently Relevant to Health Maintenance Insurance [employer] * Guarantor: Richi Uribe Account Type Relation to Patient Date of Phone Billing Address Personal/Family Self [place], [place] Care Teams Billing Specialist Relationship Specialty Start Date End Date Clara Thomas MD [address] [place] [address] PCP - General Internal Medicine 03/14/25 Miguel Denson MD [address] [place] [address] Addiction Medicine 09/29/24
--- OUTSIDE RECORDS SUMMARY | 2025-04-04 14:55 | XMS_ITS | Encounter Summary ---
Author Organization [employer] Address 75 [facility] 7t [place] [address] Care Team Providers Care Electronics Engineering Professor Name Role Phone Twila Murray MD Primary Care Provider + [phone] Miguel Denson MD Unavailable [phone] Clara Thomas MD Primary Care Provide r Reason for Visit * Reason Comments Med Refill Encounter Details Date Type Department Care Team (Late st Contact Info) Description 12/29/2023 Refill [facility] [address] [place], [place] [phone] Miguel Denson MD [address] [place], [place] [phone] Uncomplicated opioid use Social History Tobacco Use [...] Info) Description 04/20/2025 11:30 AM EDT Telemedicine [facility] [address] [place] [phone] Clara Thomas MD [address] [place] [phone] 05/02/2025 10:15 AM EDT Office Visit [facility] [address] [place] [phone] Miguel Denson MD [address] [place] [phone] documented as of this encounter Visit Diagnoses Diagnosis Uncomplicated opioid use documented in this encounter Additional Health Concerns Assessment Noted Time PHQ-9 Depression Total Score: 24 023 9:57 AM EST documented as of this encounter Care Teams Electronics Engineering Professor Relationship Specialty Start Date End Date Twila Murray MD [address] [place] [address] 29016 PCP - General Family Medicine 05/20/13 01/09/25 Clara Thomas MD [address] [place] [address] 26343 PCP - General Internal Medicine 03/14/25 Miguel Denson MD [address] [place] [address] [phone] Addiction Medicine 09/29/24 documented as of this encounter
--- OUTSIDE RECORDS SUMMARY | 2025-04-04 14:55 | XMS_ITS | Encounter Summary ---
Author Organization [employer] Address 75 [facility] 7t [place] [address] Care Team Providers Care Civil Engineer Land Development Name Role Phone Miguel Denson MD Unavailable Clara Thomas MD Primary Care Provide r Encounter Details Date Type Department Care Team (Latest Contact Info) Description 04/04/2025 Travel Social History Tobacco Use Types Packs/Day [...] Info) Description 04/20/2025 11:30 AM EDT Telemedicine [facility] [address] [place] [place] [phone] Clara Thomas MD [address] [place] [phone] 05/02/2025 10:15 AM EDT Office Visit [facility] [address] [place] [place] [phone] Miguel Denson MD [address] [place] [phone] documented as of this encounter Visit Diagnoses Not on filedocumented in this encounter Additional Health Concerns Assessment Noted Time PHQ-9 Depression Total Score: 24 023 9:57 AM EST documented as of this encounter Care Teams Civil Engineer Land Development Relationship Specialty Start Date End Date Clara Thomas MD [address] [place] [phone] PCP - General Internal Medicine 03/14/25 Miguel Denson MD [address] [place] [address] [phone] Addiction Medicine 09/29/24 documented as of this encounter
[2025-04-06 06:00] LABS: HIV Num 1 0.04 S/CO (0.00-0.99); ~HepC Num1 0.08 S/CO (0.00-0.79); ~Hepatitis C Antibody Nonreactive (Nonreactive)
== END 2025-04-04 11:00 | disposition home or self-care (01) ==
LOC: HO.HHCL 10:59
PROVIDERS: PCP Internal Medicine; Visit Provider Internal Medicine
DX: F33.1 Major depressive disorder, recurrent, moderate (principal); F11.24 Opioid dependence with opioid-induced mood disorder; Z13.6 Encounter for screening for cardiovascular disorders; Z13.1 Encounter for screening for diabetes mellitus; Z13.29 Encounter for screening for other suspected endocrine disorder
CPT/HCPCS: 36415; 80053; 80061; 82306; 83036; 84443; 85025; 86803; 87389

== ENCOUNTER 2025-05-04 09:42 | Outpatient (REF) | payer OTHER, SELFPAY ==
--- OUTSIDE RECORDS SUMMARY | 2025-04-04 10:00 | XMS_ITS | Encounter Summary ---
Author Organization [employer] Address [address] [facility] 7[address] [place] [address] Care Team Providers Care Manager Staffing Name Role Phone Miguel Denson MD Unavailable [phone] Clara Thomas MD Primary Care Provide r Reason for Visit * Reason Comments OBAT F/U Encounter Details Date Type Department Care Team (Latest Contact Info) Description 04/04/2025 10:00 AM EDT Clinical Support [facility] [address] [place] [phone] Yandy Patterson RN Opioid type dependence, continuous [...] Answer Date Recorded Patient Health Questionnaire-9 Score 0 05/02/2025 Patient Health Questionnaire-9 Score 0 05/02/2025 Last PHQ-9: Questionnaire Data Not on file 1 Housing Stability Answer Date Recorded What is [...] Answer Date Recorded Patient Health Questionnaire-2 Score 0 05/02/2025 Internet Access Answer Date Recorded Internet Access Q1 Yes 09/20/2024 Internet Access Q2 Not on file 09/20/2024 Sex and Gender Information Value Date Recorded Sex Assigned at Male 05/19/2022 10:19 AM EDT Legal Sex Male 10:19 AM EDT Gender Identity Male 05/19/2022 10:19 AM EDT Sexual Orientation Straight 11/25/2022 8: 48 AM EDT documented as of this encounter Functional Status * Over the past 2 weeks, how often have you been bothered by any of the following problems? Question Answer Date of Assessment Author Patient Health Questionnaire-2 Score 0 04/19 10:48 AM EDT Lorena Degroot MA * Little interest or pleasure in doing things Answer Date of Assessment Author Not at all 05/02/2025 10:48 AM EDT Silvia Degroot MA * Feeling down, depressed, or hopeless Answer Date of Assessment Author Not at all 05/02/2025 10:48 AM EDT Silvia Degroot MA * Trouble falling or staying asleep, or sleeping too much Answer Date of Assessment Author Not at all 05/02/2025 10:48 AM EDT Silvia Degroot MA * Feeling tired or having little energy Answer Date of Assessment Author Not at all 05/02/2025 10:48 AM EDT Silvia Degroot MA * Poor appetite or overeating Answer Date of Assessment Author Not at all 05/02/2025 10:48 AM EDT Silvia Degroot MA * Feeling bad about yourself - or that you are a failure or have let yourself or your family down Answer Date of Assessment Author Not at all 05/02/2025 10:48 AM Silvia Amos MA * Trouble concentrating on things, such as reading the newspaper or watching television Answer Date of Assessment Author Not at all 05/02/2025 10:48 AM Silvia Amos MA * Moving or speaking so slowly that other people could have noticed? Or the opposite - being so fidgety or restless that you have been moving around a lot more than usual. Answer Date of Assessment Author Not at all 05/02/2025 10:48 AM Silvia Amos MA * Thoughts that you would be better off or hurting yourself in some way Answer Date of Assessment Author Not at all 05/02/2025 10:48 AM Silvia Amos MA * Patient Health Questionnaire-9 Score Answer Date of Assessment Author 0 05/02/2025 10:48 AM Silvia Amos MA * Over the last 2 weeks, how often have you been bothered by any of the following problems? Question Answer Date of Assessment Author Feeling nervous, anxious, or on edge 0 04/19 10:48 AM Lorena Amos MA Not being able to stop or co ntrol worrying 0 05/02/2025 10:48 AM Lorena Amos MA Worrying too much about diff erent things 0 05/02/2025 10:48 AM Lorena Amos MA Trouble relaxing 0 05/02/2025 10:48 AM Lorena Amos MA Being so restless that it is hard to sit still 0 05/02/2025 10:48 AM Lorena Amos MA Becoming easily annoyed or irritable 0 04/19 10:48 AM Lorena Amos MA Feeling afraid as if somethi ng awful might happen 0 05/02/2025 10:48 AM Lorena Amos MA YODIT-7 Total Score 0 05/02/2025 10:48 AM Lorena Amos MA documented as of this encounter Progress Notes * Yandy Patterson RN - 04/04/2025 10:00 AM EDT Patient ID: Richi Uribe presents for follow-up for opioid use disorder. Intake date: 12/24/16. Has been in the program 8 years, 3 months. Current Suboxone dose of 12/3 mg daily. On a 4 week schedule. Behavioral health provider is Shakir Rice and Dr Meza. LFTs done: 07/2024 Hep A status: Immunized in 2009 x 1 Hep B status: Immunized in early Hep C status: Non-reactive 08/11/23 HIV status: Non-reactive 08/11/23 [place] PAT reviewed by provider. Smoking status: 4-5 cigarettes when at work Today 01/10/25 F/U for opioid use disorder BUP, BNZ, THC Overall, doing well. Suboxone effective. Work is good, not to busy over night. Things good at home. Took one of his mom's Klonopin last -panic attack. It's been a long time since last used it. No alcohol. Not sure if he still has a PCP. No cigarettes x 4 days. Smokes ~ 2 packs per month. Has not been interested in MAT. /Dr. Meza N No ADRs ----- As above. Recovery intact. BH/psych as above. Reports only uses BNZ x 1. Recent utoxes have been negative. Will see if he has a PCP. If not, will placed on waiting. WIC/ED if needed. F/U 4 weeks. Tobacco use disorder Congratulated on the effort he is putting in. Periodically, review. Diagnoses and all orders for this visit: Opioid use disorder in remission Tobacco use disorder TODAY 04/04/25 UTOX: +bup, binh, thc Richi presented today for OBAT RN IN PERSON VISIT for Opioid Use Disorder. He is alert and oriented. Speech clear, coherent and goal directed. Easily engaged, initiates conversation. He said he is feeling very good lately, no s/s of depression. He said he did take a benzo the other day from hismother due to additional stress at home (many people in and out of his house planning for an upcoming birthday constitution party). He said he had such an anxiety attack that he was sent home from work. He will be resuming his medications (gabapentin, prozac) today as he has connected with a psychiatric provider. 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 Plan: Suboxone dosing schedule of 12/3 mg [...] Care Team (Late st Contact Info) Description 05/30/2025 10:30 AM EST Clinical Support [address] [phone] Yandy Patterson RN documented as of this encounter Procedures Procedure Name Priority Date/Time Associated Diagnosis Comments POCT ANDREINA-14 URINE DRUG SCREEN Routine 04/04/2025 11:21 AM EDT Opioid type dependence, continuous ([facility]) documented in this encounter Results * (ABNORMAL) [...] Visit Diagnoses Diagnosis Opioid type dependence, continuous (CMS/HCC) ([facility])- Primary Opioid type dependence, continuous documented in this encounter Additional Health Concerns Assessment Noted Time PHQ-9 Depression Total Score: 24 023 9:57 AM EST documented as of this encounter Care Teams Manager Staffing Relationship Specialty Start Date End Date Clara Thomas MD [address] [place] [address] PCP - General Internal Medicine 03/14/25 Miguel Denson MD [address] [place] [address] Addiction Medicine 09/29/24 documented as of this encounter
--- OUTSIDE RECORDS SUMMARY | 2025-05-02 10:15 | XMS_ITS | Encounter Summary ---
Author Organization [employer] Address 75 [facility] 7t [place] [address] Care Team Providers Care Track Repair Laborer Name Role Phone Miguel Denson MD Unavailable [phone] Clara Thomas MD Primary Care Provide r Reason for Visit * Reason Comments obat f/u Encounter Details Date Type Department Care Team ([facility] st Contact Info) Description 05/02/2025 10:15 AM EDT Office Visit [facility] [address] [place], [place] [phone] Miguel Denson MD [address] [place], [place] [phone] Opioid dependence on agonist therapy (CMS/HCC) (HCC) (Primary Dx); Tobacco use disorder Social History Tobacco Use Types Packs/Day Years [...] 05/02/2025 10:48 AM Silvia Amos MA * Feeling bad about yourself - [...] YODIT-7 Total Score 0 05/02/2025 10:48 AM EDT Lorena Degroot MA documented as of this encounter Progress Notes * Miguel Denson MD - 05/02/2025 10:15 AM EDT Patient ID: Richi Uribe presents [...] Smoking status: 4-5 cigarettes when at work 04/04/25 UTOX: Richi 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 He said he had such an anxiety attack that he was sent home from work. He will be resuming his medications (gabapentin, prozac) today as he has connected with a psychiatric provider. 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 Today 05/02/25 F/U for opioid use disorder No Utox Has been having stomach issues for the last 2 to 3 weeks. This has been a recurrent problem. He is scheduled to see his PCP, Dr. Kline, today. Work is good. 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 Pretty quiet. Likes it. Certified to give meds. He has a new therapist at [facility] and has started seeing Dr. Meza, psychiatrist, again. Denies any ADRs. A package of cigarettes will last 2 weeks. Rare alcohol. States last took a Klonopin around 3-1/2 weeks ago. Does not take these often. Gets them from someone who is prescribed same. Does not buy on the street. His is also working. His 7-year-old son is in second grade. Objective Physical Exam Constitutional: Appearance: Normal appearance. Neurological: Mental Status: He is alert and oriented to person, place, and time. Psychiatric: Mood and Affect: Mood normal. Behavior: Behavior normal. Thought Content: Thought content normal. Assessment/Plan Opioid dependence on agonist therapy ([facility]) ([facility]) Saima Carbajal Has been having stomach issues for the last 2 to 3 weeks. This has been a recurrent problem. He is scheduled to see his PCP, Dr. Kline, today. Work is good. 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 Pretty quiet. Likes it. Certified to give meds. He has a new therapist at [facility] and has started seeing Dr. Meza, psychiatrist, again. Denies any ADRs. A package of cigarettes will last 2 weeks. Rare alcohol. States last took a Klonopin around 3-1/2 weeks ago. Does not take these often. Gets them from someone who is prescribed same. Does not buy on the street. His is also working. His 7-year-old son is in second grade. As above. Work is going well. Engaged with behavioral health/psychiatry. Family is good. Reviewed Klonopin use. PCP visit today for abdominal issues. No ADRs (i.e. constipation). Follow-up 4 weeks. Tobacco use disorder As above. Limiting smoking. Periodically review. Diagnoses and all orders for this visit: Opioid dependence on agonist therapy (CMS/HCC) ([facility]) Tobacco use disorder This information has been disclosed to you from records protected by federal confidentiality rules(42 CFR Part 2). The federal rules prohibit you from making any further disclosure of information in this record that identifies a patient as having or having had a substance use disorder either directly, by reference to publicly available information, or through verification of such identificationby another person unless further disclosure is expressly permitted by the written consent of the individual whose information is being disclosed or as otherwise permitted by (see 2.3.1). The federal rules restrict any use of the information to investigate or prosecute with regard to a crime any patient with a substance use disorder, except as provided at 2.12??(5) and 2.65. documented in this encounter Plan of Treatment Upcoming Encounters Date Type Department Care Team (Late st Contact Info) Description 05/30/2025 10:30 AM EST Clinical Support [facility] [address] [place] [phone] Yandy Patterson RN documented as of this encounter Visit Diagnoses Diagnosis Opioid dependence on agonist therapy (CMS/HCC) (HCC)- Primary Tobacco use disorder documented in this encounter Additional Health Concerns Assessment Noted Time PHQ-9 Depression Total Score: 0 05/02/20 10:48 AM EDT documented as of this encounter Care Teams Track Repair Laborer Relationship Specialty Start Date End Date Clara Thomas MD [address] [place] [phone] PCP - General Internal Medicine 03/14/25 Miguel Denson MD [address] [place] [phone] Addiction Medicine 09/29/24 documented as of this encounter
--- OUTSIDE RECORDS SUMMARY | 2025-05-02 11:00 | XMS_ITS | Encounter Summary ---
Author Organization [employer] Address 75 [facility] 7t [place] [address] Care Team Providers Care Entry Specialists Name Role Phone Miguel Denson MD Unavailable [phone] Clara Thomas MD Primary Care Provide r Encounter Details Date Type Department Care Team (Late st Contact Info) Description 05/02/2025 11:00 AM EDT Telemedicine [facility] [address] [place] [address] Clara Thomas MD [address] [place] [address] Generalized abdominal pain; Hypokalemia; Anemia, unspecified type; Dietary counseling; Exercise counseling Social History Tobacco Use Types Packs/Day Years [...] as of this encounter Progress Notes * Clara Rush MD - 05/02/2025 11:00 AM EDT SUBJECTIVE: Richi Uribe is a 30 y.o. year old male who presents for Follow up . Acute Concerns: Patient reports he has been having abdominal pain, nausea, vomiting and sometimes diarrhea for sometime now he tells me that this is started about 9 years ago he tells me that this problem comes andgoes and lately it has been activated again, patient denies black stool blood in the vomit or in the stool I reviewed with him his blood work I will let him know know last time that we did the blood his potassium was low and he has also anemia I sent new blood work to investigate the cause of the anemia and to verify if the potassium level but he did not do it I asked him to do it today Social History Social History Narrative Not on file Problem List[1] Backache Chronic pain syndrome Moderate episode of recurrent major depressive disorder (CMS/HCC) (HCC) Nicotine dependence Opioid dependence (HCC) YODIT (generalized anxiety disorder) Preventative health care Generalized abdominal pain Palpitations Dyspnea on exertion Family History[2] Review of Systems Constitutional: Negative. HENT: Negative. Respiratory: Negative. Cardiovascular: Negative. Gastrointestinal: Positive for abdominal distention, abdominal pain, diarrhea, nausea and vomiting.Negative for anal bleeding, blood in stool, constipation and rectal pain. Follow Up: No follow-ups on file. Medications Ordered Prior to Encounter[3] Problem List Items Addressed This Visit Generalized abdominal pain I advise patient to avoid NSAIDs, spicy and acid food, I advise to eat at the same time every day, I advise to elevate the head of the bed and take medications as prescribe I will order today H. pylori test I advised not to take any PPI for at least a week before the testis done I will prescribe omeprazole I let him know he can take it after he delivers the sample for H. pylori Relevant Medications omeprazole (PriLOSEC) [address] polo Other Relevant Orders Helicobacter pylori Antigen, EIA, Stool Hypokalemia BMP will be rechecked today Anemia Anemia workup ordered he will do it today Other Visit Diagnoses Dietary counseling Exercise counseling [1] Patient Active Problem List Diagnosis Backache Chronic pain syndrome Moderate episode of recurrent major depressive disorder (CMS/HCC) (HCC) Nicotine dependence Opioid dependence (HCC) YODIT (generalized anxiety disorder) Preventative health care Generalized abdominal pain Palpitations Dyspnea on exertion Hypokalemia Anemia [2] No family history on file. [3] Current Outpatient Medications on File Prior to Visit Medication Sig Dispense Refill Acetaminophen Extra Strength 500 MG tablet TAKE 1 TABLET BY MOUTH EVERY 6 TO 8 HOURS NEEDED FOR DO NOT EXCEED 8 TABLETS IN 24 HOURS ARIPiprazole (Abilify) 5 MG tablet Take 5 mg by mouth in the morning. buprenorphine-naloxone (Suboxone) 12-3 MG per sublingual film Place 1 Film under the tongue Once per day for 28 days. 28 Film 0 gabapentin (Neurontin) 300 MG capsule Take 300 mg by mouth 3 times daily. ibuprofen 600 MG tablet TAKE 1 TABLET BY MOUTH EVERY 8 HOURS NEEDED FOR FEVER OR PAIN ibuprofen 800 MG tablet Take 1 tablet by mouth in the morning and 1 tablet at noon and 1 tablet in the evening. naloxone (Narcan) 4 mg/0.1 mL nasal spray Administer 0.1 mL into affected nostril(s). nicotine (Nicoderm, Step 2) 14 MG/24HR patch APPLY 1 PATCH TOPICALLY TO THE SKIN EVERY MORNING DIRECTED nicotine polacrilex (Commit) 2 MG lozenge DISSOLVE 1 TO 2 LOZENGES BY MOUTH EVERY 1 TO 2 HOURS INSTEAD OF A CIGARETTE. LET IT DISSOLVE SLOWLY IN YOUR MOUTH DIRECTED venlafaxine XR (Effexor XR) 150 MG 24 hr capsule Take 300 mg by mouth in the morning. No current facility-administered medications on file prior to visit. documented in this encounter Miscellaneous Notes * Assessment & Plan Note - lCara Rush MD - 05/02/2025 11:55 AM EDT Associated Problem(s): Anemia Anemia workup ordered he will do it today * Assessment & Plan Note - Clara Rush MD - 05/02/2025 11:54 AM EDT Associated Problem(s): Hypokalemia BMP will be rechecked today * Assessment & Plan Note - Clara Rush MD - 05/02/2025 11:54 AM EDT Associated Problem(s): Generalized abdominal pain I advise patient to avoid NSAIDs, spicy and acid food, I advise to eat at the same time every day, I advise to elevate the head of the bed and take medications as prescribe I will order today H. pylori test I advised not to take any PPI for at least a week before the testis done I will prescribe omeprazole I let him know he can take it after he delivers the sample for H. pylori documented in this encounter Plan of Treatment Upcoming Encounters Date Type Department Care Team (Late st Contact Info) Description 05/30/2025 10:30 AM EST Clinical Support [facility] [address] [place] [address] Yandy Patterson RN Scheduled Orders Name Type Priority Associated Diagnoses Orde r Schedule Helicobacter pylori Antigen, EIA, Stool Lab Routine Generalized abdominal pain Expected: 05/02/2025, Expires: 05/02/2026 documented as of this encounter Visit Diagnoses Diagnosis Generalized abdominal pain Abdominal pain, generalized Hypokalemia Hypopotassemia Anemia, unspecified type Dietary counseling Dietary surveillance and counseling Exercise counseling documented in this encounter Additional Health Concerns Assessment Noted Time PHQ-9 Depression Total Score: 0 05/02/20 25 10:48 AM EDT documented as of this encounter Care Teams Entry Specialists Relationship Specialty Start Date End Date Clara Thomas MD [address] [place] [id number] PCP - General Internal Medicine 03/14/25 Miguel Denson MD [address] [place] [phone] Addiction Medicine 09/29/24 documented as of this encounter
--- OUTSIDE RECORDS SUMMARY | 2025-05-04 11:15 | XMS_ITS | Encounter Summary ---
Author Organization [employer] Address 75 [facility] 7t [place] [address] Care Team Providers Care Rn Geriatric Name Role Phone Miguel Denson MD Unavailable [phone] Clara Thomas MD Primary Care Provide r Encounter Details Date Type Department Care Team (Latest Contact Info) Description 05/02/2025 Travel Social History Tobacco Use Types Packs/Day [...] Author Not at all 05/02/2025 10:48 AM OUMART Silvia Degroot MA * Trouble falling or [...] Author Not at all 05/02/2025 10:48 AM OUMART Silvia Degroot MA * Feeling bad about yourself - or that you are a failure or have let yourself or your family down Answer Date of Assessment Author Not at all 05/02/2025 10:48 AM OUMART Silvia Degroot MA * Trouble concentrating on things, such as reading the newspaper or watching television Answer Date of Assessment Author Not at all 05/02/2025 10:48 AM EDT Silvia Degroot MA * Moving or speaking so slowly that other people could have noticed? Or the opposite - being so fidgety or restless that you have been moving around a lot more than usual. Answer Date of Assessment Author Not at all 05/02/2025 10:48 AM EDT Silvia Degroot MA * Thoughts that you would be better off or hurting yourself in some way Answer Date of Assessment Author Not at all 05/02/2025 10:48 AM EDT Silvia Degroot MA * Patient Health Questionnaire-9 Score Answer Date of Assessment Author 0 05/02/2025 10:48 AM Silvia Amos MA * Over the last 2 weeks, how often have you been bothered by any of the following problems? Question Answer Date of Assessment Author Feeling nervous, anxious, or on edge 0 04/19 10:48 AM OUMART Lorena Degroot MA Not being able to stop or co ntrol worrying 0 05/02/2025 10:48 AM OUMART Lorena Degroot MA Worrying too much about diff erent [...] Amos MA documented as of this encounter Plan of Treatment Upcoming Encounters Date Type Department Care Team (Late st Contact Info) Description 05/30/2025 10:30 AM EST Clinical Support [address] [address] Yandy Patterson RN documented as of this encounter Visit Diagnoses Not on filedocumented in this encounter Additional Health Concerns Assessment Noted Time PHQ-9 Depression Total Score: 0 05/02/20 25 10:48 AM EDT documented as of this encounter Care Teams Rn Geriatric Relationship Specialty Start Date End Date Clara Thomas MD [address] [place] [address] PCP - General Internal Medicine 03/14/25 Miguel Denson MD [address] [place] [address] Addiction Medicine 09/29/24 documented as of this encounter
--- OUTSIDE RECORDS SUMMARY | 2025-05-04 11:15 | XMS_ITS | Encounter Summary ---
Author Organization [employer] Address 75 [facility] 7t [place] [address] Care Team Providers Care Endless Track Vehicle Supervisor Name Role Phone Twila Murray MD Primary Care Provider + [phone] Miguel Denson MD Unavailable [phone] Clara Thomas MD Primary Care Provide r Reason for Visit * Reason Comments Med Refill Encounter Details Date Type Department Care Team (Late st Contact Info) Description 12/29/2023 Refill [facility] [address] [place], [place] [phone] Miguel Denson MD [address] [place], [place] [phone] Uncomplicated opioid use Social History Tobacco Use [...] Description 05/30/2025 10:30 AM EST Clinical Support [facility] [address] [place] [address] Yandy Patterson RN documented as of this encounter Visit Diagnoses Diagnosis Uncomplicated opioid use documented in this encounter Additional Health Concerns Assessment Noted Time PHQ-9 Depression Total Score: 24 023 9:57 AM EST documented as of this encounter Care Teams Endless Track Vehicle Supervisor Relationship Specialty Start Date End Date Twila Murray MD [address] [place] [phone] PCP - General Family Medicine 05/20/13 01/09/25 Clara Thomas MD [address] [place] [address] PCP - General Internal Medicine 03/14/25 Miguel Denson MD [address] [place] [phone] Addiction Medicine 09/29/24 documented as of this encounter
--- OUTSIDE RECORDS SUMMARY | 2025-05-04 11:15 | XMS_ITS | Encounter Summary ---
Author Organization [employer] Address 75 [facility] 7t [place] [address] Care Team Providers Care Shirt Turner Name Role Phone Twila Murray MD Primary Care Provider [phone]- [phone] Miguel Denson MD Unavailable [phone] Clara Thomas MD Primary Care Provide r Encounter Details Date Type Department Care Team (Late st Contact Info) Description 08/07/2023 Orders Only [facility] [address] [place] [address] Yandy Patterson RN Uncomplicated opioid dependence (CMS/HCC) [...] Description 05/30/2025 10:30 AM EST Clinical Support [facility] [address] [place] [phone] Yandy Patterson, RN documented as of this encounter Visit Diagnoses Diagnosis Uncomplicated opioid dependence (CMS/HCC) (HCC) documented in this encounter Additional Health Concerns Assessment Noted Time PHQ-9 Depression Total Score: 24 023 9:57 AM EST documented as of this encounter Care Teams Shirt Turner Relationship Specialty Start Date End Date Twila Murray MD [address] [place] [phone] PCP - General Family Medicine 05/20/13 01/09/25 Clara Thomas MD [address] [place] [address] 11935 PCP - General Internal Medicine 03/14/25 Miguel Denson MD [address] [place] [phone] Addiction Medicine 09/29/24 documented as of this encounter
--- OUTSIDE RECORDS SUMMARY | 2025-05-04 11:15 | XMS_ITS | Encounter Summary ---
Author Organization [employer] Address [address] [place] [address] 7t [place] [address] Care Team Providers Care Owner Spa Director Name Role Phone Hickory, Twila CORONEL Primary Care Provider + [phone] Miguel Denson MD Unavailable [phone] Clara Thomas MD Primary Care Provide r Reason for Visit * Reason Comments Med Refill Encounter Details Date Type Department Care Team (Late st Contact Info) Description 07/01/2023 Refill [facility] [address] [place], [place] [phone] Miguel Denson MD [address] [place], [place] [phone] Uncomplicated opioid use Social History Tobacco Use [...] Description 05/30/2025 10:30 AM EST Clinical Support [facility] [address] [place], [place] [phone] Enko, Yandy, RN documented as of this encounter Visit Diagnoses Diagnosis Uncomplicated opioid use documented in this encounter Additional Health Concerns Assessment Noted Time PHQ-9 Depression Total Score: 17 023 10:54 AM EDT documented as of this encounter Care Teams Owner Spa Director Relationship Specialty Start Date End Date Twila Murray MD [address] [place] [address] PCP - General Family Medicine 05/20/13 01/09/25 Clara Thomas MD [address] [place] [phone] PCP - General Internal Medicine 03/14/25 Miguel Denson MD [address] [place] [address]59 Addiction Medicine 09/29/24 documented as of this encounter
--- OUTSIDE RECORDS SUMMARY | 2025-05-04 11:15 | XMS_ITS | Clinical Summary ---
Author Organization [employer] Address [address] [facility] [address] [place] [address] Care Team Providers Care Community Midwife Name Role Phone Miguel Denson MD Unavailable [phone] Clara Thomas MD Primary Care Provide r [...] sublingual filmIndication s:Uncomplicate d opioid dependence (CMS/HCC) ([facility]LY [facility]) Place 1 Film under the tongue Once per day for 28 days. 28 Film 04/25/20 25 025 Active omeprazole (PriLOSEC) [address] capsuleIndicat ions:Generaliz ed abdominal pain Take 1 capsule (20 mg) by mouth before breakfast and before evening meal. Do not crush or chew. 60 capsule 1 05/02/20 25 025 Active buprenorphine- naloxone (Suboxone) 12-3 MG per sublingual filmIndication s:Uncomplicate d opioid dependence (CMS/HCC) ([facility]) Place 1 Film under the tongue Once per day for 28 days. 28 Film 03/31/20 25 025 Discontinued(Re order (will not trigger notification to Pharmacy)) Active Problems Problem Noted Date Diagnosed Date Hypokalemia 05/02/2025 Assessment & Plan (05/02/2025 11:54 AM EDT): BMP will be rechecked today Anemia 05/02/2025 Assessment & Plan (05/02/2025 11:55 AM EDT): Anemia workup ordered he will do it today Palpitations 02/20/2025 Assessment & Plan (02/20/2025 5:02 PM EDT): TSH will be check Cardiology referral Dyspnea on exertion 02/20/2025 Assessment & Plan (02/20/2025 5:01 PM EDT): I will refer patient to cardiology Generalized abdominal pain 08/18/2024 Overview (08/18/2024): -seen in Er 08/18/24 CT IMPRESSION: No acute findings. Moderate colonic fecal retention. Correlate for constipation. Assessment & Plan (05/02/2025 11:54 AM EDT): I advise patient to avoid NSAIDs, spicy and acid food, I advise to eat at the same time every day, I advise to elevate the head of the bed and take medications as prescribe I will order today H. 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 pylori Preventative health care 05/26/2023 Overview (09/29/2024): -next [...] unemployment. He is connected with Psychiatrist from [facility] has no therapist at the moment. During [...] past 12 months): Keep seen Psychiatrist at [facility]) Behavioral Health Integration Plan: Internal Follow up with [facility] and External OP therapy referral Patient Self Plan: Patient to utilize skills provided in intervention , Patient to reach out to [facility] team as needed, and Comply [...] unemployment. He is connected with Psychiatrist from [facility]), has no therapist at the moment. During [...] past 12 months): Keep seen Psychiatrist at [facility]) Behavioral Health Integration Plan: Internal Follow up with [facility] and External OP therapy referral Patient Self Plan: Patient to utilize skills provided in intervention , Patient to reach out to [facility] team as needed, and Comply [...] activation and self-love. He is connected with [facility] for OP services. Provided education around integrated [...] benefit from continuation of OP services with [facility]) providers. At this time Richi Uribe meets criteria for Visit Diagnoses: Problem List Items Addressed This Visit Other Moderate episode of recurrent major depressive disorder (CMS/HCC) Opioid dependence (CMS/HCC) Patient ready to address current needs Richi is already engage in services. Strengths include willing to speak up and advocate for himself. PLAN: 1. Follow up with [facility]: Recommended for follow-up: during OBAT appts 2. Patient goal is to maintaing sobriety and improve mental health 3. Behavioral Recommendations a. Ind. Therapy b. Medication Management c. Use of coping skills d. [facility] contact info for extra support Backache 05/13/2013 Moderate episode of recurren t major depressive disorder (CMS/HCC) 05/13/2013 Assessment & Plan (02/20/2025 5:04 PM [...] activation and self-love. He is connected with [facility]) for OP services. Provided education around integrated [...] benefit from continuation of OP services with [facility]) providers. At this time Richi Uribe meets criteria for Visit Diagnoses: Problem List Items Addressed This Visit Other Moderate episode of recurrent major depressive disorder (CMS/HCC) Opioid dependence (CMS/HCC) Patient ready to address current needs Richi is already engage in services. Strengths include willing to speak up and advocate for himself. PLAN: 1. Follow up with [facility]: Recommended for follow-up: during OBAT appts 2. Patient goal is to maintaing sobriety and improve mental health 3. Behavioral Recommendations a. Ind. Therapy b. Medication Management c. Use of coping skills d. [facility] contact info for extra support Encounters Date Type Department Care Team Description 05/02/2025 11:00 AM EDT Telemedicine [address] [address] Clara Thomas MD Generalized abdominal pain; Hypokalemia; Anemia, unspecified type; Dietary counseling; Exercise counseling 05/02/2025 10:15 AM EDT Office Visit [address] [address] Miguel Denson MD Opioid dependence on agonist therapy (CMS/HCC) ([facility]) (Primary Dx); Tobacco use disorder 05/02/2025 Travel 05/01/[address] [address] Clara Thomas MD Chart Prep 04/25/[address] [address] Yandy Patterson RN Uncomplicated opioid dependence (CMS/HCC) (HCC) 04/04/2025 10:00 AM EDT Clinical Support [address] [address] Yandy Patterson RN Opioid type dependence, continuous (CMS/HCC) (Primary Dx) 04/04/2025 Results Follow-Up [facility] [address] [place] [address] Clara Thomas MD CBC auto differential, Comprehensive Metabolic Panel, Hemoglobin A1c, Additional followed-up results: 3 04/04/2025 Orders Only [facility] [address] [place] [address] Clara Thomas MD Hypokalemia (Primary Dx); Anemia, unspecified type 04/04/2025 Travel 03/28/2025 Refill [facility] [address] [place] [address] Yandy Patterson RN Uncomplicated opioid dependence (CMS/HCC) 03/14/2025 Telephone [facility] [address] [place] [address] Clara Thomas MD Nurse Triage 03/09/2025 Telephone [facility] [address] [place] [address] Yandy Patterson RN 03/09/2025 Refill [facility] [address] [place] [address] Yandy Patterson RN 03/07/2025 Telephone [facility] [address] [facility] [place] [address] Yandy Patterson RN 03/03/2025 Refill [facility] [address] [facility] [place] [address] Yandy Patterson RN Uncomplicated opioid dependence (CMS/HCC) 02/20/2025 1:00 PM EDT Office Visit [facility] [address] [place] [address] Clara Thomas MD Moderate episode of recurrent major depressive disorder (CMS/HCC) (Primary Dx); Opioid dependence with opioid-induced mood disorder (CMS/HCC); YODIT (generalized anxiety disorder); Palpitations; Dyspnea on exertion 02/20/2025 Travel 02/17/2025 Telephone [facility] [address] [place] [address] Clara Thomas MD chart prep 02/13/2025 Patient Outreach [facility] [address] [place] [address] Clara Thomas MD Pre-visit Planning (SDOH was already completed) 02/07/2025 Telephone [facility] [address] [place] [address] Yandy Patterson RN 02/07/2025 Travel 02/06/2025 Telephone [facility] [address] [place] [address] Yandy Patterson RN 02/01/2025 Refill [facility] [address] [place], [place] [phone] Yandy Patterson RN Uncomplicated opioid dependence ([facility]) from Last 3 Months Immunizations Immunization Administration Dates Next Due DTaP 06/15/1998, 7,1994,08/27,1994 HPV, Quadrivalent 11/25/2012,07/04/2010 Hep A, ped/adol, 2 dose 07/04/2010 Hep B, Adolescent or Pediatric 1994,1994,1994 Hib (HbO) 10/06/1996, 5,1994,06/03 IPV 05/15/1998, 7,1994,09/06,1994 Influenza, IIV3, [...] your housing situation today? I have osmar azar 09/20/[address] you li [...] Description 05/30/2025 10:30 AM EST Clinical Support [facility] [address] [place], [place] [phone] Yandy Patterson, RN Health Maintenance Due Date Last Done Comments Family Planning (PISQ) 2009 Hepatitis A Vaccines (2 of 2 - 2-dose series) 01/02/2011 07/04/2010 HPV Vaccines (3 - Male 3-dose series) 02/17/2013 11/25/2012, 07/04/2010 COVID-19 Vaccine ( - season) 2025 02/15/2022, 01/17/2022 Influenza Vaccine (#1) 2025 0, 07/03/2009, 05/16/2008, Additional history exists SDOH Screening 09/20/2025 09/20/2024 Alcohol/Substance Use Screening 02/20/2026 02/20/2025 Disability Screening 02/20/2026 02/20/2025 Tobacco Screening 02/20/2026 02/20/2025 Depression Screening 05/02/2026 05/02/2025, 05/02/20 25 DTaP/Tdap/Td Vaccines (8 - Td or Tdap) [...] to complete this topic HIV Screening Completed 04/04/2025, 07/21, 11/19/2021, Additional history exists Hepatitis C Screening Completed 04/04/2025 , 08/11/2023, 11/19/2021, Additional history exists Meningococcal B Vaccine Aged Out No l [...] Opioid dependence with opioid-induced mood disorder (CMS/HCC) HEPATITIS C AB W/REFL TO HCV RNA, QN, PCR Routine 04/04/2025 11:05 AM EDT Moderate episode of recurrent major depressive disorder (CMS/HCC) Opioid dependence with opioid-induced mood disorder (CMS/HCC) HIV 1/2 ANTIGEN/ANTIBODY, FOURTH GENERATION W/RFL Routine 04/04/2025 11:05 AM EDT Moderate episode [...] Opioid dependence with opioid-induced mood disorder (CMS/HCC) from Last 3 Months Results * (ABNORMAL) POCT ANDREINA-14 Urine Drug [...] Vitamin D 25-OH Total 22.6(L) >30 ng/mL [facility] Comment: Health Based Reference Values*< 20 ng/mL Zfveqvzco32-61 ng/mL Insufficient> 30 ng/mL Sufficient*Otilia SCHMIDT. N [...] BLOOD ORDERABLES Final Result Performing Organization Address City/[facility]/ZIP Co de Phone Number [facility] [address] [place] [phone] * TSH with Reflex to Free T4 (04/04/2025 11:05 AM EDT) TSH reflex Free T4 1.80 0.32 - 4.0 uIU/mL [facility] Blood Venous blood specimen / Unknown 04/04/2025 11:05 AM EDT 04/04/2025 1:20 PM EDT us Clara Rush MD LAB BLOOD ORDERABLES Final Result Performing Organization Address [facility]/ZIP Co de Phone Number [facility] [address] [place] [phone] * (ABNORMAL) CBC auto differential (04/04/2025 11:05 AM EDT) White Blood Count 8.2 4.8 - 10.8 X10*3/uL [facility] Red Blood Count 4.53(L) 4.60 - 5.80 X10*6/uL [facility] Hemoglobin 12.9(L) 14.0 - 18.0 g/dl [facility] Hematocrit 37.5(L) 42.0 - 52.0 % [facility] Mean Corpuscular Volume 82.8 80.0 - 98.0 fL [facility] Mean Corpuscular Hemoglobin 28.5 27.0 - 33.0 pg [facility] Mean Corpuscular HGB Conc 34.4 31.0 - 36.0 g/dl [facility] Red Cell Distribution Width 13.2 11.0 - 16.0 % [facility] Platelet Count 242 160 - 400 X10*3/uL [facility] Mean Platelet Volume 10.6 9.4 - 12.4 fL [facility] Neutrophils Percent Auto 69.1 45 - 73 % [facility] Imm Gran Pct Auto 0.2 0.0 - 0.4 % [facility] Lymphocytes Percent Auto 22.7 20 - 40 % [facility] Monocytes Percent Auto 4.9 2 - 11 % [facility] Eosinophils Percent Auto 2.7 0 - 4 % [facility] Basophils Percent Auto 0.4 0 - 2 % [facility] NRBC Pct Auto 0.0 0.0 - 0.2 /100WBC [facility] Neutrophils Absolute Auto 5.7 2.0 - 8.3 x10*3/uL [facility] Imm Gran Abs Auto 0.02 0.00 - 0.03 X10*3/uL [facility] Lymphocytes Absolute Auto 1.9 1.2 - 4.9 X10*3/uL [facility] Monocytes Absolute Auto 0.4 0.1 - 1.2 X10*3/uL [facility] Eosinophils Absolute Auto 0.2 0.0 - 0.4 X10*3/uL [facility] Basophils Absolute Auto 0.0 0.0 - 0.2 X10*3/uL [facility] NRBC Abs Auto 0.000 0.0 - 0.012 X10*3/uL [facility] Blood Venous blood specimen / Unknown 04/04/2025 11:05 AM EDT 04/04/2025 1:13 PM EDT Clara Rush MD LAB BLOOD ORDERABLES Final Result Performing Organization Address [facility]/ZIP Co de Phone Number [facility] [address] [place] [phone] * Hepatitis C Antibody with Reflex to HCV, RNA, Quantitative, Real-Time PCR (04/04/2025 11:05 AM EDT) Hepatitis C Antibody Nonreactive Nonreactive [facility] Comment:Antibodies to HCV no t detected; does not exclude early acuteHCV infection. Blood Venous blood specimen / Unknown 04/04/2025 11:05 AM EDT 04/04/2025 1:13 PM EDT Clara Rush MD LAB BLOOD ORDERABLES Final Result Performing Organization Address City/[facility]/ZIP Co de Phone Number [facility] [address] [place] [phone] * HIV-1/2 Antigen and Antibodies, Fourth Generation, with Reflexes (04/04/2025 11:05 AM EDT) HIV AB/AG Nonreactive Nonreactive [facility] Comment:HIV-1 p24 Ag and/or HIV-1/HIV-2 Ab not detected.A test result that is nonreactive does not exclude thepossibility of exposure to or infection with HIV-1 and/orHIV-2. Nonreactive results in this assay for individualswith prior exposure to HIV-1 and/or HIV-2 may be due toantigen and antibody levels that are below the limit ofdetection of this assay.The MTPVniSociact HIV Ag/Ab Combo assay result andsupplemental assay results should be interpreted inconjunction with the patient's clinical presentation,history and other laboratory results. If the results areinconsistent with clinical evidence, additional testing issuggested to confirm the result. Blood Venous blood specimen / Unknown 04/04/2025 11:05 AM EDT 04/04/2025 1:13 PM EDT Clara Rush MD LAB BLOOD ORDERABLES Final Result Performing Organization Address [facility]/ZIP Co de Phone Number [facility] [address] [place] [phone] * Hemoglobin A1c (04/04/2025 11:05 AM EDT) Hemoglobin A1c 5.4 <6.0 % [facility] Comment:Hemoglobin A1C Refer ence Range Adults: 4.8 - 6.0 % Non diabetic: < 6.0 % Goal: < 7.0 %Additional Action Suggested: > 8.0 %Note: Hemoglobin A1c results are invalid for patients with abnormal amounts of HbF. Blood transfusions may impact the HbA1c concentration in the patient sample. Estimated Average Glucose 108 mg/dL [facility] Comment:eAG = Estimated ave rage glucose which is %A1C expressed asaverage glucose, using the formula of the H9K-SjcndzyIwrcnxi Glucose study (ADAG), Diabetes Care, Vol.31,#8,Feb. 2007 Blood Venous blood specimen / Unknown 04/04/2025 11:05 AM EDT 04/04/2025 1:13 PM EDT us Clara Rush MD LAB BLOOD ORDERABLES Final Result Performing Organization Address [facility]/ZIP Co de Phone Number [facility] [address] [place] [phone] * (ABNORMAL) Lipid Panel, Standard (04/04/2025 11:05 AM EDT) Triglycerides 203(H) <150 mg/dL [facility] Comment:Desirable Triglyceri de: less than 150 mg/dLBorderline High Triglyceride 150-199 mg/dLHigh Triglyceride: 200-499 mg/dLVery High Triglyceride: greater than or equal to 5OO mg/dL Cholesterol 146 <200 mg/dL [facility] Comment:Desirable Cholestero l: less than 200 mg/dLBorderline High Cholesterol: 200-239 mg/dLHigh Cholesterol: greater than 239 mg/dL LDL Cholesterol Calculated 51 <100 mg/dL [facility] Comment:Desirable LDL: less than 100 mg/dLNear Optimal/Above Optimal LDL: 110- 129 mg/dLBorderline High LDL: 130-159 mg/dLHigh LDL: 160-189 mg/dLVery High LDL: greater than or equal to 190 mg/dL HDL Cholesterol 55 >40 mg/dL [facility] Comment:Desirable HDL: great er than 40 mg/dL Note: This HDL assay may give artificially low results in patients with liver disease. Blood Venous blood specimen / Unknown 04/04/2025 11:05 AM EDT 04/04/2025 1:20 PM EDT Clara Rush MD LAB BLOOD ORDERABLES Final Result [facility] [address] [place] [phone] * (ABNORMAL) Comprehensive Metabolic Panel (04/04/2025 11:05 AM EDT) Sodium 144 135 - 145 mmol/L [facility] Potassium 3.0(L) 3.3 - 5.1 mmol/L [facility] Chloride 109(H) 96 - 108 mmol/L [facility] Carbon Dioxide 26 22 - 29 mmol/L [facility] Anion Gap 12 12 - 20 [facility] Urea Nitrogen (BUN) 9 9 - 16 mg/dL [facility] Creatinine, Serum 0.71 0.5 - 1.4 mg/dL [facility] Estimated Glomerular Filt Rate >60 [facility] Comment:Chronic Kidney Disea se: Estimated GFR < 60 mL/min/[id number] Kidney Disease: Estimated GFR < 15 mL/min/1.73m2 Glucose 125(H) 60 - 115 mg/dL [facility] Calcium 8.9 8.4 - 10.2 mg/dL [facility] Bilirubin, Total 0.3 0.0 - 1.0 mg/dL [facility] Aspartate Amino Transferase 83(H) 5 - 37 U/L [facility] Alanine Aminotransferase 72(H) 0 - 40 U/L [facility] Total Protein 6.7 6.5 - 8.0 g/dL [facility] Albumin Level 4.3 3.5 - 5.0 g/dL [facility] Alkaline Phosphatase 67 39 - 117 U/L [facility] Blood Venous blood specimen / Unknown 04/04/2025 11:05 AM EDT 04/04/2025 1:20 PM EDT us Clara Rush MD LAB BLOOD ORDERABLES Final Result [facility] [address] [place] [phone] from Last 3 Months Insurance [employer] Care Teams Community Midwife Relationship Specialty Start Date End Date Clara Thomas MD [address] [place] [address] PCP - General Internal Medicine 03/14/25 Miguel Denson MD [address] [place] [address] Addiction Medicine 09/29/24
--- OUTSIDE RECORDS SUMMARY | 2025-05-04 11:16 | XMS_ITS | Encounter Summary ---
Author Organization [employer] Address [address] [facility] [address]t [place] [address] Care Team Providers Care Dispensary Clerk Name Role Phone Miguel Denson MD Unavailable Clara Thomas MD Primary Care Provide r Reason for Visit * Reason Onset Date Comments Chart Prep 05/01/2025 Encounter Details Date Type Department Care Team ([facility] st Contact Info) Description 05/01/2025 Telephone [facility] [address] [place], [place] [phone] Clara Thomas MD [address] [place], [place] [phone] Chart Prep Social History Tobacco Use Types Packs/Day Years [...] encounter Miscellaneous Notes * Telephone Encounter - Jolene Geronimo [place] - 05/01/2025 2:08 PM EDT Chart Prep Labs: done Images: not applicable Referrals: appointment pending Vaccines due: Covid, Flu, Hep A, and HPV Screenings: not applicable Overdue care gaps: PHQ-9, YODIT-7, and Oral health screening documented in this encounter Plan of Treatment Upcoming Encounters Date Type Department Care Team (Late st Contact Info) Description 05/30/2025 10:30 AM EST Clinical Support [facility] [address] [place] [phone] Yandy Patterson, MICHELE documented as of this encounter Visit Diagnoses Not on filedocumented in this encounter Additional Health Concerns Assessment Noted Time PHQ-9 Depression Total Score: 24 023 9:57 AM EST documented as of this encounter Care Teams Dispensary Clerk Relationship Specialty Start Date End Date Clara Thomas MD [address] [place] [address] PCP - General Internal Medicine 03/14/25 Miguel Denson MD [address] [place] [address] Addiction Medicine 09/29/24 documented as of this encounter
[2025-05-04 11:31] LABS: MANUAL DIFF FLAG NO
[2025-05-04 11:38] LABS: Hematocrit 43.7 % (42.0-52.0); Hemoglobin 14.9 g/dl (14.0-18.0); Imm Gran Abs Auto 0.02 X10*3/uL (0.00-0.03); Imm Gran Pct Auto 0.3 % (0.0-0.4); Lymphocytes Absolute Auto 1.5 X10*3/uL (1.2-4.9); Mean Corpuscular HGB Conc 34.1 g/dl (31.0-36.0); Mean Corpuscular Hemoglobin 28.5 pg (27.0-33.0); Mean Corpuscular Volume 83.6 fL (80.0-98.0); NRBC Abs Auto 0.000 X10*3/uL (0.0-0.012); NRBC Pct Auto 0.0 /100WBC (0.0-0.2); Platelet Count 313 X10*3/uL (160-400); Red Blood Count 5.23 X10*6/uL (4.60-5.80); White Blood Count 6.3 X10*3/uL (4.8-10.8)
[2025-05-04 12:11] LABS: Anion Gap 15 (12-20); Blood Urea Nitrogen 7 mg/dL (9-16); Calcium 9.2 mg/dL (8.4-10.2); Carbon Dioxide 27 mmol/L (22-29); Chloride 104 mmol/L (96-108); Estimated Glomerular Filt Rate > 60; Iron 36 mcg/dL (45-160); Percent Iron Saturation 10 % (15-50); Potassium 3.7 mmol/L (3.3-5.1); Sodium 142 mmol/L (135-145); Total Iron Binding Capacity 356 mcg/dL (228-428); Unsaturated Iron Binding 320 ug/dL
[2025-05-04 12:27] LABS: Ferritin 129 ng/mL (20-250)
[2025-05-04 12:39] LABS: Folate 8.8 ng/mL (> or = 4.0); Vitamin B12 400 pg/mL (200-900)
== END 2025-05-04 09:43 | disposition home or self-care (01) ==
LOC: HO.HHCL 09:42
PROVIDERS: PCP Internal Medicine; Visit Provider Internal Medicine
DX: E87.6 Hypokalemia (principal); D64.9 Anemia, unspecified
CPT/HCPCS: 36415; 80048; 82607; 82728; 82746; 83540; 85025

== ENCOUNTER 2025-05-08 09:46 | Outpatient (REF) | payer OTHER, SELFPAY | END 2025-05-08 09:47 | disposition home or self-care (01) | LOC: HO.HHCL 09:46 | PROVIDERS: PCP Internal Medicine; Visit Provider Internal Medicine | DX: R10.84 Generalized abdominal pain (principal) | CPT/HCPCS: 87338 ==